=== PATIENT | male | born 1975 | race American Indian/Alaskan Native ===

== ENCOUNTER 2018-09-01 16:21 | Inpatient (IN) | payer SELFPAY ==
--- NOTE | 2018-09-01 16:32 | Event Note ---
ED Screening Note Date of service: 09/01/18 Time: 16:30 ED Screening Note: 43 y/o male come in for left pinky toe pain and smell. This initial assessment/diagnostic orders/clinical plan/treatment(s) is/are subject to change based on patients health status, clinical progression and re-assessment by fellow clinical providers in the ED. Further treatment and workup at subsequent clinical providers discretion. Patient/guardian urged not to elope from the ED as their condition may be serious if not clinically assessed and managed. Initial orders include:
[2018-09-01 17:09] LABS: Basophils # (Auto) 0.1 K/mm3 (0.0-0.1); Basophils % (Auto) 0.4 % (0.0-1.8); Eosinophils # (Auto) 0.2 K/mm3 (0.0-0.4); Eosinophils % (Auto) 1.2 % (0.0-4.3); Hematocrit 35.6 % (35.5-45.6); Hemoglobin 11.6 gm/dl (11.8-15.2); Lymphocytes # (Auto) 3.3 K/mm3 (1.2-5.4); Lymphocytes % (Auto) 22.1 % (13.4-35.0); Mean Corpuscular HGB Conc 33 % (32-34); Mean Corpuscular Volume 83 fl (84-94); Monocytes # (Auto) 1.1 K/mm3 (0.0-0.8); Monocytes % (Auto) 7.3 % (0.0-7.3); Platelet Count 461 K/mm3 (140-440); Red Blood Count 4.27 M/mm3 (3.65-5.03); Red Cell Distribution Width 15.2 % (13.2-15.2)
--- NOTE | 2018-09-01 17:19 | XRay Report ---
PROCEDURE: XR FOOT 3+V LT TECHNIQUE: Frontal, lateral and oblique views left foot HISTORY: left pinky toes pain and stinks COMPARISONS: None FINDINGS: There is diffuse osteophytosis of the proximal, mid and distal phalanx of the fifth toe and proximal and mid phalanges of the fourth toe with evidence of dislocation of the bony structures. There also appears to be lytic change involving the lateral aspect of the distal metaphysis and epiph ysis of the proximal phalanx of the third toe. There is the appearance of an overlying skin defect on the lateral aspect of the forefoot. There is diffuse soft tissue swelling of the ankle and foot. IMPRESSION: 1. Findings most suggestive of osteomyelitis with toby bone destruction and dislocation involving th e phalanges of the fourth and fifth toes and possibly osteomyelitis of the proximal phalanx of the th ird toe. If further imaging is required, CT may be helpful. This document is electronically signed by Maureen Sun MD., September 01 2018 05:16:42 PM ET
[2018-09-01 17:31] LABS: Alanine Aminotransferase 16 units/L (7-56); Albumin 3.1 g/dL (3.9-5); BUN/Creatinine Ratio 7; Blood Urea Nitrogen 8 mg/dL (9-20); Calcium 8.7 mg/dL (8.4-10.2); Hemolysis Index 3
[2018-09-01 17:36] LABS: Erythrocyte Sedimentation Rate 71 mm/Hr (0-20)
[2018-09-01] MEDS ORDERED: MORPHINE IV ONE (18:16)
--- NOTE | 2018-09-01 18:23 | Emergency Department Report ---
HPI - General Chief Complaint: Extremity Injury, Lower Time Seen by Provider: 09/01/18 18:09 - HPI HPI: 43-year-old -[place] male presents to the emergency department with the complaint of pain, infection and drainage from the fourth and fifth toes of his left foot. He says that he has been noticing that it has been getting progressive worse over the past week. The patient says that he has been traveling around on a bus and therefore has been unable to stop somewhere to seek treatment. He says that he is currently moving to the [facility] but does not have a local primary care physician. He has a past history of hypertension and charcot bone disease. He presents with a low-grade fever but denies any feelings of fever, chills, sweats. He has been trying to clean the area and wrapped it up but otherwise has not taken anything for his symptoms prior to arrival. ED Past Medical Hx - Past Medical History Previous Medical History?: Yes Hx Hypertension: Yes Additional medical history: bone disease - Surgical History Past Surgical History?: Yes Hx Cholecystectomy: Yes Additional Surgical History: left foot surgery - Social History Smoking Status: Never Smoker Substance Use Type: Marijuana ED Review of Systems ROS: Stated complaint: LT PINKY TOE PAIN Other details as noted in HPI Comment: All other systems reviewed and negative Constitutional: denies: chills, diaphoresis Eyes: denies: eye pain, vision change ENT: denies: ear pain, throat pain Respiratory: denies: cough, shortness of breath Cardiovascular: denies: chest pain, palpitations Gastrointestinal: denies: abdominal pain, vomiting Genitourinary: denies: dysuria, discharge Musculoskeletal: arthralgia. denies: joint swelling Skin: lesions, change in color (skin and ulceration to the fourth and fifth toes of the left foot) Neurological: denies: headache, weakness Physical Exam - Physical Exam Vital Signs: Vital Signs 09/01/18 16:25 Temperature 100 F H Pulse Rate 91 H Respiratory 16 Rate Blood Pressure 131/74 O2 Sat by Pulse 98 Oximetry Physical Exam: GENERAL: The patient is well-developed well-nourished. HENT: Normocephalic. Atraumatic. Patient has moist mucous membranes. EYES: Extraocular motions are intact. NECK: Supple. Trachea is midline. CHEST/LUNGS: Clear to auscultation. There is no respiratory distress noted. HEART/CARDIOVASCULAR: Regular. There is no tachycardia. There is no murmur. ABDOMEN: Abdomen is soft, nontender. Patient has normal bowel sounds. There is no abdominal distention. SKIN: There is an ulcerated wound to the distal left lateral foot that involves the fifth toe and is between the fifth and fourth toe as well. The fifth toe is partially detached. There is some brownish white malodorous drainage. The fifth toe is necrotic and dark. NEURO: The patient is awake, alert, and oriented. The patient is cooperative. The patient has no focal neurologic deficits. The patient has normal speech. MUSCULOSKELETAL: There is no tenderness or deformity. There is no evidence of acute injury. ED Course Vital Signs 09/01/18 16:25 Temperature 100 F H Pulse Rate 91 H Respiratory 16 Rate Blood Pressure 131/74 O2 Sat by Pulse 98 Oximetry ED Medical Decision Making - Lab Data Result diagrams: 09/01/18 16:53 09/01/18 16:53 - Radiology Data Radiology results: report reviewed PROCEDURE: XR FOOT 3+V LT TECHNIQUE: Frontal, lateral and oblique views left foot HISTORY: left pinky toes pain and stinks COMPARISONS: None FINDINGS: There is diffuse osteophytosis of the proximal, mid and distal phalanx of the fifth toe and proximal and mid phalanges of the fourth toe with evidence of dislocation of the bony structures. There also appears to be lytic change involving the lateral aspect of the distal metaphysis and epiphysis of the proximal phalanx of the third toe. There is the appearance of an overlying skin defect on the lateral aspect of the forefoot. There is diffuse soft tissue swelling of the ankle and foot. IMPRESSION: 1. Findings most suggestive of osteomyelitis with toby bone destruction and dislocation involving the phalanges of the fourth and fifth toes and possibly osteomyelitis of the proximal phalanx of the third toe. If further imaging is required, CT may be helpful. This document is electronically signed by Maureen Sun MD., September 01 2018 05:16:42 PM ET Transcribed By: ED Dictated By: MAUREEN SUN MD Electronically Authenticated By: MAUREEN SUN MD Signed Date/Time: 09/01/18 8723 - Medical Decision Making This patient presents to the emergency department with a one-week history of darkening of the skin and possible infection to the left fifth and fourth toes. On examination the fifth toe is only partially attached as there is an ulcerated wound surrounding this toe and in between the fifth and fourth toe. There is some bluish brownish drainage. Patient has a low-grade fever but otherwise vital signs are stable. There is a mild to moderate leukocytosis. An x-ray was done that shows signs of osteomyelitis of the fifth and fourth toes. The patient was started on vancomycin and Rocephin and will be admitted to the hospital for further evaluation and treatment. He was accepted for admission by the hospitalist, Dr. Masters. - Differential Diagnosis osteomyelitis, diabetic ulcer, cellulitis Critical Care Time: No Critical care attestation.: If time is entered above; I have spent that time in minutes in the direct care of this critically ill patient, excluding procedure time. ED Disposition Clinical Impression: Osteomyelitis of fifth toe of left foot, Osteomyelitis of fourth toe of left foot Disposition: OP ADMIT IP TO THIS HOSP Is pt being admited?: Yes Condition: Fair Time of Disposition: 18:23
[2018-09-01] MEDS ORDERED: VANCOMYCIN PHARMACY TO DOSE IV SCH ×2 (19:00→20:00)
[2018-09-01] MEDS ORDERED: ROCEPHIN/NS 2 GM/100 ML 2 GM/100 ML BAG IV ONE (19:16)
[2018-09-01] MEDS ORDERED: SODIUM CHLORIDE FLUSH SYRINGE 10 ML IV PRN (19:33)
[2018-09-01] MEDS ORDERED: TYLENOL PO PRN (19:33)
[2018-09-01] MEDS ORDERED: ZOFRAN IV PRN (19:33)
[2018-09-01] MEDS ORDERED: ROCEPHIN/NS 1 GM/50 ML 1 GM/50 ML BAG IV ONE (19:44)
[2018-09-01] MEDS ORDERED: MORPHINE ONE (19:45)
[2018-09-01] MEDS ORDERED: ROCEPHIN IM ONE (19:49)
[2018-09-01] MEDS ORDERED: NACL 0.9% 1000 ML 1,000 ML IV SCH (20:00)
--- NOTE | 2018-09-01 20:09 | History and Physical Report ---
History of Present Illness Date of examination: 09/01/18 Date of admission: 09/01/18 18:24 Chief complaint: Left foot wound with excessive drainage and foul odor History of present illness: 43-year-old -[place] male with history of hypertension and charcot bone disease presents to [facility] ED with complaints of left foot wound with increased drainage. Patient underwent left foot surgery in [facility] approximately 2-3 weeks ago. He was advised to continue wet to dry dressings and wrapped foot with José Antonio bandage. Over the past 2 weeks he has noticed his wound drainage has progressively increased with a foul odor and the development of foot pain. Lázaro nino states that he removed the bandage one night and found his left fourth and fifth toe to be blistered with discolored drainage and a strong foul odor. Patient admits to not seeking immediate medical attention because he was in the process of relocating from [place] to [place]. He states that he was traveling on a commercial bus for several days before arriving in [place]. Today is his first day in the city of [place], and he is to immediately seek treatment for his foot. Admits: Fever, foot pain, foul foot odor, increased drainage Denies: n/v/d, headache, history of diabetes, or cough Past History Past Medical History: hypertension, other (Charcot bone disease) Past Surgical History: cholecystectomy, Other (left foot surgery) Social history: smoking (marijuana) Family history: no significant family history Medications and Allergies Allergies Allergy/AdvReac Type Severity Reaction Status Date / Time hydromorphone [From Dilaudid] AdvReac Unknown Verified 09/01/18 19:11 Active Meds: Active Medications Acetaminophen (Tylenol) 650 mg PO Q4H PRN PRN Reason: Pain MILD(1-3)/Fever >100.5/SCHMIDT Docusate Sodium (Colace) 100 mg PO BID ZACH Heparin Sodium (Porcine) (Heparin) 5,000 unit SUB-Q Q12HR ZACH Hydralazine HCl (Apresoline) 10 mg IV Q4HR PRN PRN Reason: Blood Pressure Vancomycin HCl 2,000 mg/ (Sodium Chloride) 540 mls @ 250 mls/hr IV Q8H ZACH Sodium Chloride (Nacl 0.9% 1000 Ml) 1,000 mls @ 125 mls/hr IV DIRECT ZACH Stop: 09/02/18 11:00 Ampicillin Sodium/Sulbactam Sodium (Unasyn/Ns 1.5 Gm/50 Ml) 1.5 gm in 50 mls @ 100 mls/hr IV Q6HR ZACH; Protocol Morphine Sulfate (Morphine) 2 mg IV Q4H PRN PRN Reason: Pain , Severe (7-10) Ondansetron HCl (Zofran) 4 mg IV Q8H PRN PRN Reason: Nausea And Vomiting Oxycodone/Acetaminophen (Percocet 5/325) 1 tab PO Q6H PRN PRN Reason: Pain, Moderate (4-6) Potassium Chloride (K-Dur) 40 meq PO ONCE ONE Stop: 09/01/18 20:45 Sodium Chloride (Sodium Chloride Flush Syringe 10 Ml) 10 ml IV BID ZACH Sodium Chloride (Sodium Chloride Flush Syringe 10 Ml) 10 ml IV PRN PRN PRN Reason: LINE FLUSH Review of Systems All systems: negative (reviewed and no additional remarkable complaints except as noted below) Musculoskeletal: other (left foot pain, left foot drainage, left foot odor) Integumentary: wounds (left foot wound) Exam - Physical Exam Narrative exam: Physical exam General appearance: Present: No acute distress, obese, alert and oriented 3, a total male - EENT Eyes: Present: PERRL, EOM intact ENT: hearing intact, normal dentition - Neck Neck: Present: supple, normal ROM - Respiratory Respiratory effort: Non-labored Respiratory: Clear throughout - Cardiovascular Heart rate: 91 (bpm) Rhythm: Sinus rhythm Heart Sounds: Present: S1 & S2. Absent: rub, click - Extremities Extremities: no ischemia, pulses intact, abnormal (discoloration and ulceration to the fourth and fifth toes of the left foot, with foul odor noted) - Peripheral Assessment Peripheral Pulses: within normal limits - Abdominal General gastrointestinal: Obese, soft, non-tender, normal bowel sounds - Integumentary Integumentary: Present: warm, dry - Musculoskeletal Musculoskeletal: Able to move all extremities -Neurological Neurological: CN II-XII intact - Psychiatric Psychiatric: cooperative - Constitutional Vitals: Temp Pulse Resp BP Pulse Ox 100 F H 91 H 16 140/84 98 09/01/18 16:25 09/01/18 16:25 09/01/18 16:25 09/01/18 19:30 09/01/18 19:30 Results - Labs CBC & Chem 7: 09/01/18 16:53 09/01/18 16:53 Labs: Laboratory Last Values WBC 14.8 K/mm3 (4.5-11.0) H 09/01/18 16:53 RBC 4.27 M/mm3 (3.65-5.03) 09/01/18 16:53 Hgb 11.6 gm/dl (11.8-15.2) L 09/01/18 16:53 Hct 35.6 % (35.5-45.6) 09/01/18 16:53 MCV 83 fl (84-94) L 09/01/18 16:53 MCH 27 pg (28-32) L 09/01/18 16:53 MCHC 33 % (32-34) 09/01/18 16:53 RDW 15.2 % (13.2-15.2) 09/01/18 16:53 Plt Count 461 K/mm3 (140-440) H 09/01/18 16:53 Lymph % (Auto) 22.1 % (13.4-35.0) 09/01/18 16:53 [place] % (Auto) 7.3 % (0.0-7.3) 09/01/18 16:53 Eos % (Auto) 1.2 % (0.0-4.3) 09/01/18 16:53 Baso % (Auto) 0.4 % (0.0-1.8) 09/01/18 16:53 Lymph # 3.3 K/mm3 (1.2-5.4) 09/01/18 16:53 [place] # 1.1 K/mm3 (0.0-0.8) H 09/01/18 16:53 Eos # 0.2 K/mm3 (0.0-0.4) 09/01/18 16:53 Baso # 0.1 K/mm3 (0.0-0.1) 09/01/18 16:53 Seg Neutrophils % 69.0 % (40.0-70.0) 09/01/18 16:53 Seg Neutrophils # 10.2 K/mm3 (1.8-7.7) H 09/01/18 16:53 ESR 71 mm/Hr (0-20) 09/01/18 16:53 Sodium 133 mmol/L (137-145) L 09/01/18 16:53 Potassium 3.5 mmol/L (3.6-5.0) L 09/01/18 16:53 Chloride 92.9 mmol/L (98-107) L 09/01/18 16:53 Carbon Dioxide 28 mmol/L (22-30) 09/01/18 16:53 16 mmol/L 09/01/18 16:53 BUN 8 mg/dL (9-20) L 09/01/18 16:53 1.2 mg/dL (0.8-1.5) 09/01/18 16:53 Estimated GFR > 60 ml/min 09/01/18 16:53 7 % 09/01/18 16:53 Glucose 95 mg/dL (75-100) 09/01/18 16:53 Lactic Acid 1.50 mmol/L (0.7-2.0) 09/01/18 16:53 Calcium 8.7 mg/dL (8.4-10.2) 09/01/18 16:53 0.40 mg/dL (0.1-1.2) 09/01/18 16:53 AST 14 units/L (5-40) 09/01/18 16:53 ALT 16 units/L (7-56) 09/01/18 16:53 109 units/L (35-129) 09/01/18 16:53 8.1 g/dL (6.3-8.2) 09/01/18 16:53 3.1 g/dL (3.9-5) L 09/01/18 16:53 0.6 % 09/01/18 16:53 - Imaging and Cardiology Imaging and Cardiology: Lt Foot XR: IMPRESSION: Findings most suggestive of osteomyelitis with toby bone destruction and dislocation involving the phalanges of the fourth and fifth toes and possibly osteomyelitis of the proximal phalanx of the third toe. If further imaging is required, CT may be helpful. Assessment and Plan Assessment and plan: 43-year-old -[place] male with history of hypertension and charcot bone disease presents to [facility] ED with complaints of left foot wound with increased drainage and pain. On arrival to facility patient is found to be with low-grade temp of 100. Elevated WBC at 14.8. Left foot x-ray findings are most suggestive of osteomyelitis with with toby bone destruction and dislocation involving the phalanges of the fourth and fifth toes and possibly osteomyelitis of the proximal phalanx of the third toe. Will admit to medical floor. Admits: Fever, foot pain, foul foot odor, increased drainage Denies: n/v/d, headache, history of diabetes, or cough SIRS Osteomyelitis (Lt foot) Leukocytosis Anemia Hyponatremia Hypokalemia HTN Moderate to severe malnutrition History of charcot bone disease Marijuana abuse Obesity Plan: Continue supportive care Monitor BP IV hydralazine when necessary Monitor electrolytes; replete as needed Start NS @ 125ml/hr Potassium 40 mEq po given x1 Monitor CBC Start Unasyn and vancomycin MRI foot pending Bilateral lower extremity arterial duplex pending Blood cultures pending Wound cultures pending Wound care consult pending Vascular consult pending Gen surge consult pending Dietitian consult pending HgbA1c pending Counseled for marijuana cessation May benefit from outpatient weight management program DVT PPX on Heparin and SCD's Medication reconciliation pending Advance Directives: No VTE prophylaxis?: Chemical Plan of care discussed with patient/family: Yes
[2018-09-01] MEDS ORDERED: K-DUR PO ONE (20:44)
[2018-09-01] MEDS: PERCOCET 5/325 PO PRN (22:10)
[2018-09-01] MEDS: HEPARIN SUB-Q SCH (22:10)
[2018-09-01] MEDS: COLACE PO SCH (22:10)
[2018-09-01] MEDS: SODIUM CHLORIDE FLUSH SYRINGE 10 ML IV SCH (22:11)
[2018-09-01] MEDS: VANCOMYCIN 2,000 MG in NACL 0.9% 500 ML 500 ML IV SCH (22:12)
[2018-09-02] MEDS: UNASYN/NS 1.5 GM/50 ML 1.5 GM/50 ML BAG IV SCH ×2 (00:29→04:59)
[2018-09-02] MEDS: MORPHINE IV PRN ×4 (00:30→20:12)
[2018-09-02] MEDS: VANCOMYCIN 2,000 MG in NACL 0.9% 500 ML 500 ML IV SCH ×3 (05:02→20:54)
[2018-09-02 08:15] LABS: Basophils % (Auto) 0.4 % (0.0-1.8); Eosinophils # (Auto) 0.1 K/mm3 (0.0-0.4); Eosinophils % (Auto) 1.3 % (0.0-4.3); Hematocrit 31.2 % (35.5-45.6); Hemoglobin 10.6 gm/dl (11.8-15.2); Lymphocytes # (Auto) 2.5 K/mm3 (1.2-5.4); Lymphocytes % (Auto) 23.9 % (13.4-35.0); Mean Corpuscular HGB Conc 34 % (32-34); Mean Corpuscular Volume 82 fl (84-94); Monocytes # (Auto) 0.8 K/mm3 (0.0-0.8); Monocytes % (Auto) 7.3 % (0.0-7.3); Platelet Count 403 K/mm3 (140-440); Red Blood Count 3.82 M/mm3 (3.65-5.03); Red Cell Distribution Width 15.1 % (13.2-15.2)
[2018-09-02 08:31] LABS: BUN/Creatinine Ratio 8; Blood Urea Nitrogen 9 mg/dL (9-20); Calcium 8.4 mg/dL (8.4-10.2); Hemolysis Index 0
--- NOTE | 2018-09-02 09:06 | Consultation ---
History of Present Illness - Reason for Consult Consult date: 09/02/18 nonhealing left foot wound - History of Present Illness Patient with a history of left foot wound underneath the first MTP. Arterial ultrasound be performed at time of examination. Patient has good inflow extending into the tibial vessels. He does have bilateral lower extremity edema left greater than right and a history of an ankle ulcer on the left that is previously healed. Additionally, the patient has a right Charcot foot. He does not have a pressure reducing footwear. Not currently seeing wound care. Past History Past Medical History: hypertension, other (Charcot bone disease) Past Surgical History: cholecystectomy, Other (left foot surgery) Social history: smoking (marijuana) Family history: no significant family history Medications and Allergies Allergies Allergy/AdvReac Type Severity Reaction Status Date / Time hydromorphone [From Dilaudid] AdvReac Unknown Verified 09/01/18 19:11 Home Medications Medication Instructions Recorded Confirmed Last Taken Type Carvedilol [Coreg] 25 mg PO BID 09/02/18 09/02/18 09/01/18 History Catapres 0.2 mg PO TID 09/02/18 09/02/18 09/01/18 20:00 History 0.2 DULoxetine 60 mg PO DAILY 09/02/18 09/02/18 09/01/18 History Flecainide 50 mg PO BID 09/02/18 09/02/18 09/01/18 History 50 mg Losartan/Hydrochlorothiazide 100 mg PO BID 09/02/18 09/02/18 09/01/18 20:00 History Minoxidil 0.5 mg PO BID 09/02/18 09/02/18 09/01/18 20:00 History Omeprazole 40 mg PO BID 09/02/18 09/02/18 09/01/18 History Potassium Chloride 20 meq PO BID 09/02/18 09/02/18 09/01/18 History Active Meds: Active Medications Acetaminophen (Tylenol) 650 mg PO Q4H PRN PRN Reason: Pain MILD(1-3)/Fever >100.5/SCHMIDT Docusate Sodium (Colace) 100 mg PO BID [facility] Last Admin: 09/01/18 22:10 Dose: 100 mg Documented by: Heparin Sodium (Porcine) (Heparin) 5,000 unit SUB-Q Q12HR [facility] Last Admin: 09/01/18 22:10 Dose: 5,000 unit Documented by: Hydralazine HCl (Apresoline) 10 mg IV Q4HR PRN PRN Reason: Blood Pressure Vancomycin HCl 2,000 mg/ (Sodium Chloride) 540 mls @ 250 mls/hr IV Q8H [facility] Last Admin: 09/02/18 05:02 Dose: 250 mls/hr Documented by: Sodium Chloride (Nacl 0.9% 1000 Ml) 1,000 mls @ 125 mls/hr IV DIRECT ZACH Stop: 09/02/18 11:00 Last Admin: 09/01/18 22:21 Dose: 125 mls/hr Documented by: Ampicillin Sodium/Sulbactam Sodium (Unasyn/Ns 1.5 Gm/50 Ml) 1.5 gm in 50 mls @ 100 mls/hr IV Q6H [facility]; Protocol Last Admin: 09/02/18 04:59 Dose: 100 mls/hr Documented by: Morphine Sulfate (Morphine) 2 mg IV Q4H PRN PRN Reason: Pain , Severe (7-10) Last Admin: 09/02/18 05:02 Dose: 2 mg Documented by: Ondansetron HCl (Zofran) 4 mg IV Q8H PRN PRN Reason: Nausea And Vomiting Oxycodone/Acetaminophen (Percocet 5/325) 1 tab PO Q6H PRN PRN Reason: Pain, Moderate (4-6) Last Admin: 09/01/18 22:10 Dose: 1 tab Documented by: Sodium Chloride (Sodium Chloride Flush Syringe 10 Ml) 10 ml IV BID [facility] Last Admin: 09/01/18 22:11 Dose: 10 ml Documented by: Sodium Chloride (Sodium Chloride Flush Syringe 10 Ml) 10 ml IV PRN PRN PRN Reason: LINE FLUSH Last Admin: 09/01/18 22:22 Dose: 10 ml Documented by: Review of Systems All systems: negative Exam - Constitutional Vitals: Temp Pulse Resp BP Pulse Ox 98.4 F 75 18 133/87 97 09/02/18 05:25 09/02/18 05:25 09/02/18 05:25 09/02/18 05:25 09/02/18 05:25 General appearance: Present: no acute distress - EENT Eyes: Present: EOM intact ENT: hearing intact - Neck Neck: Present: supple, normal ROM - Respiratory Respiratory effort: normal - Extremities Extremities: abnormal Extremity abnormal: edema - Abdominal General gastrointestinal: Present: deferred Male genitourinary: Present: deferred - Rectal Rectal Exam: deferred - Psychiatric Psychiatric: appropriate mood/affect, cooperative Results - Labs CBC & Chem 7: 09/02/18 07:16 09/02/18 07:16 Labs: Abnormal lab results 09/01/18 09/01/18 09/01/18 Range/Units 16:53 16:53 20:52 WBC 14.8 H (4.5-11.0) K/mm3 Hgb 11.6 L (11.8-15.2) gm/dl Hct (35.5-45.6) % MCV 83 L (84-94) fl MCH 27 L (28-32) pg Plt Count 461 H (140-440) K/mm3 [place] # 1.1 H (0.0-0.8) K/mm3 Seg Neutrophils # 10.2 H (1.8-7.7) K/mm3 Sodium 133 L (137-145) mmol/L Potassium 3.5 L (3.6-5.0) mmol/L Chloride 92.9 L (98-107) mmol/L BUN 8 L (9-20) mg/dL Glucose (75-100) mg/dL Hemoglobin A1c 6.1 H (4-6) % Albumin 3.1 L (3.9-5) g/dL 09/02/18 09/02/18 Range/Units 07:16 07:16 WBC (4.5-11.0) K/mm3 Hgb 10.6 L (11.8-15.2) gm/dl Hct 31.2 L (35.5-45.6) % MCV 82 L (84-94) fl MCH (28-32) pg Plt Count (140-440) K/mm3 [place] # (0.0-0.8) K/mm3 Seg Neutrophils # (1.8-7.7) K/mm3 Sodium (137-145) mmol/L Potassium 3.4 L (3.6-5.0) mmol/L Chloride 96.2 L (98-107) mmol/L BUN (9-20) mg/dL Glucose 108 H (75-100) mg/dL Hemoglobin A1c (4-6) % Albumin (3.9-5) g/dL - Imaging and Cardiology Venous US: image reviewed Assessment and Plan Patient with a history of Charcot foot and a pressure ulcer that is now developed on his left foot. He will need local wound care likely debridement. He is to have good arterial inflow to heal the wound. Additionally, the patient will need pressure reducing foot wear. The patient likely has venous insufficiency contributing to the development of previous lateral ankle ulceration on the left. He will need to follow up in our office on discharge for venous ultrasound with reflux and likely treatment of his superficial veins.
[2018-09-02] MEDS: PERCOCET 5/325 PO PRN (09:26)
[2018-09-02] MEDS: SODIUM CHLORIDE FLUSH SYRINGE 10 ML IV SCH (09:27)
[2018-09-02] MEDS: COLACE PO SCH ×2 (09:27→22:16)
[2018-09-02] MEDS: HEPARIN SUB-Q SCH ×2 (09:27→22:16)
--- NOTE | 2018-09-02 09:37 | Progress Note ---
Assessment and Plan Assessment and plan: Sepsis Osteomyelitis left foot Leukocytosis Anemia Hyponatremia Hypokalemia HTN Moderate to severe malnutrition History of charcot bone disease Marijuana abuse Obesity Plan: Continue supportive care Monitor BP IV hydralazine when necessary Monitor electrolytes; replete as needed Monitor CBC Consult ID Physician for Osteomyelitis Unasyn and vancomycin started in ED MRI foot pending Bilateral lower extremity arterial duplex pending Blood cultures pending Wound cultures pending Wound care consult pending Gen surg consulted [id number] pending Counseled for marijuana cessation DVT PPX on Heparin and SCD's History Interval history: Pain, drainage, wound left foot, offensive odor Hospitalist Physical - Physical exam Narrative exam: Gen: Not in acute distress, lying in bed, obese HEENT: Normocephalic, atraumatic Neck: supple, no JVD Heart: S1 and S2 reg, no murmurs, rubs or gallop Lungs: Clear, no crackles, no wheeze Abd: soft, non tender, non distended, normal BS Ext: Left foot ulcer, offensive odor, drainage, no clubbing, no cyanosis, Neuro: Awake,alert, oriented x 3, moves all ext, non focal Psych:Normal mood - Constitutional Vitals: Temp Pulse Resp BP Pulse Ox 98.4 F 75 16 133/87 97 09/02/18 05:25 09/02/18 05:25 09/02/18 09:26 09/02/18 05:25 09/02/18 05:25 General appearance: Present: no acute distress Results - Labs CBC & Chem 7: 09/03/18 06:06 09/03/18 06:06 Labs: Laboratory Last Values WBC 10.6 K/mm3 (4.5-11.0) 09/02/18 07:16 RBC 3.82 M/mm3 (3.65-5.03) 09/02/18 07:16 Hgb 10.6 gm/dl (11.8-15.2) L 09/02/18 07:16 Hct 31.2 % (35.5-45.6) L 09/02/18 07:16 MCV 82 fl (84-94) L 09/02/18 07:16 MCH 28 pg (28-32) 09/02/18 07:16 MCHC 34 % (32-34) 09/02/18 07:16 RDW 15.1 % (13.2-15.2) 09/02/18 07:16 Plt Count 403 K/mm3 (140-440) 09/02/18 07:16 Lymph % (Auto) 23.9 % (13.4-35.0) 09/02/18 07:16 [place] % (Auto) 7.3 % (0.0-7.3) 09/02/18 07:16 Eos % (Auto) 1.3 % (0.0-4.3) 09/02/18 07:16 Baso % (Auto) 0.4 % (0.0-1.8) 09/02/18 07:16 Lymph # 2.5 K/mm3 (1.2-5.4) 09/02/18 07:16 [place] # 0.8 K/mm3 (0.0-0.8) 09/02/18 07:16 Eos # 0.1 K/mm3 (0.0-0.4) 09/02/18 07:16 Baso # 0.0 K/mm3 (0.0-0.1) 09/02/18 07:16 Seg Neutrophils % 67.1 % (40.0-70.0) 09/02/18 07:16 Seg Neutrophils # 7.1 K/mm3 (1.8-7.7) 09/02/18 07:16 ESR 71 mm/Hr (0-20) 09/01/18 16:53 Sodium 137 mmol/L (137-145) 09/02/18 07:16 Potassium 3.4 mmol/L (3.6-5.0) L 09/02/18 07:16 Chloride 96.2 mmol/L (98-107) L 09/02/18 07:16 Carbon Dioxide 27 mmol/L (22-30) 09/02/18 07:16 17 mmol/L 09/02/18 07:16 BUN 9 mg/dL (9-20) 09/02/18 07:16 1.1 mg/dL (0.8-1.5) 09/02/18 07:16 Estimated GFR > 60 ml/min 09/02/18 07:16 8 % 09/02/18 07:16 Glucose 108 mg/dL (75-100) H 09/02/18 07:16 6.1 % (4-6) H 09/01/18 20:52 Lactic Acid 1.50 mmol/L (0.7-2.0) 09/01/18 16:53 Calcium 8.4 mg/dL (8.4-10.2) 09/02/18 07:16 0.40 mg/dL (0.1-1.2) 09/01/18 16:53 AST 14 units/L (5-40) 09/01/18 16:53 ALT 16 units/L (7-56) 09/01/18 16:53 109 units/L (35-129) 09/01/18 16:53 8.1 g/dL (6.3-8.2) 09/01/18 16:53 3.1 g/dL (3.9-5) L 09/01/18 16:53 0.6 % 09/01/18 16:53 Active Medications - Current Medications Current Medications: Generic Name Dose Route Start Last Admin Trade Name Freq PRN Reason Stop Dose Admin Acetaminophen 650 mg 09/01/18 19:33 Tylenol PO Q4H PRN Pain MILD(1-3)/Fever >100.5/SCHMIDT Docusate Sodium 100 mg 09/01/18 22:00 09/02/18 09:27 Colace PO 100 mg BID ZACH Administration Heparin Sodium (Porcine) 5,000 unit 09/01/18 22:00 09/02/18 09:27 Heparin SUB-Q 5,000 unit Q12HR ZACH Administration Hydralazine HCl 10 mg 09/01/18 19:44 Apresoline IV Q4HR PRN Blood Pressure Vancomycin HCl 2,000 mg/ 540 mls @ 250 mls/hr 09/01/18 20:00 09/02/18 05:02 Sodium Chloride IV 250 mls/hr Q8H ZACH Administration Sodium Chloride 1,000 mls @ 125 mls/hr 09/01/18 20:00 09/01/18 22:21 Nacl 0.9% 1000 Ml IV 09/02/18 11:00 125 mls/hr DIRECT ZACH Administration Ampicillin Sodium/Sulbactam Sodium 3 gm in 100 mls @ 200 mls/hr 09/02/18 12:00 Unasyn/Ns 3 Gm/100 Ml IV Q6HR ZACH Morphine Sulfate 2 mg 09/01/18 19:35 09/02/18 05:02 Morphine IV 2 mg Q4H PRN Administration Pain , Severe (7-10) Ondansetron HCl 4 mg 09/01/18 19:33 Zofran IV Q8H PRN Nausea And Vomiting Oxycodone/Acetaminophen 1 tab 09/01/18 19:35 09/02/18 09:26 Percocet 5/325 PO 1 tab Q6H PRN Administration Pain, Moderate (4-6) Sodium Chloride 10 ml 09/01/18 22:00 09/02/18 09:27 Sodium Chloride Flush Syringe 10 Ml IV 10 ml BID ZACH Administration Sodium Chloride 10 ml 09/01/18 19:33 09/01/18 22:22 Sodium Chloride Flush Syringe 10 Ml IV 10 ml PRN PRN Administration LINE FLUSH
--- NOTE | 2018-09-02 09:53 | Vascular Lab Report ---
PROCEDURE: VL ARTERIAL DUPLEX LE BILAT TECHNIQUE: Duplex Doppler ultrasound of either bilateral lower extremity arteries or arterial bypass grafts was performed with image documentation. HISTORY: left foot osteomyelitis; check for arterial insuff COMPARISONS: None . FINDINGS: RIGHT LOWER EXTREMITY: Arterial waveforms: Triphasic . Thrombus: None . Stenosis: None . Color signal: Normal . Significant segmental velocity differential: None . Arterial bypass graft: Not present .Stenosis: None . LEFT LOWER EXTREMITY: Arterial waveforms: Triphasic . Thrombus: None . Stenosis: None . Color signal: Normal . Significant segmental velocity differential: None . Arterial bypass graft: Not present .Stenosis: None . IMPRESSION: No evidence of significant arterial insufficiency in the lower extremities. This document is electronically signed by An Ledezma MD., September 02 2018 09:51:15 AM ET
[2018-09-02] MEDS: UNASYN/NS 3 GM/100 ML 3 GM/100 ML BAG IV SCH ×2 (12:43→18:15)
--- NOTE | 2018-09-02 13:44 | Consultation ---
History of Present Illness Consult date: 09/02/18 Chief complaint: Osteomyelitis/gangrene of left 3rd, 4th and 5th toes - History of present illness History of present illness: 43 yo non-diabetic male with above CC. He has a Charcot foot as well. Had surgery on his left foot recently. Past History Past Medical History: hypertension, other (Charcot bone disease) Past Surgical History: cholecystectomy, Other (left foot surgery) Social history: smoking (marijuana) Family history: no significant family history Medications and Allergies Allergies Allergy/AdvReac Type Severity Reaction Status Date / Time hydromorphone [From Dilaudid] AdvReac Unknown Verified 09/01/18 19:11 Home Medications Medication Instructions Recorded Confirmed Last Taken Type Carvedilol [Coreg] 25 mg PO BID 09/02/18 09/02/18 09/01/18 History Catapres 0.2 mg PO TID 09/02/18 09/02/18 09/01/18 20:00 History 0.2 DULoxetine 60 mg PO DAILY 09/02/18 09/02/18 09/01/18 History Flecainide 50 mg PO BID 09/02/18 09/02/18 09/01/18 History 50 mg Losartan/Hydrochlorothiazide 100 mg PO BID 09/02/18 09/02/18 09/01/18 20:00 History Minoxidil 0.5 mg PO BID 09/02/18 09/02/18 09/01/18 20:00 History Omeprazole 40 mg PO BID 09/02/18 09/02/18 09/01/18 History Potassium Chloride 20 meq PO BID 09/02/18 09/02/18 09/01/18 History Active Meds: Active Medications Acetaminophen (Tylenol) 650 mg PO Q4H PRN PRN Reason: Pain MILD(1-3)/Fever >100.5/SCHMIDT Docusate Sodium (Colace) [address] [facility] Last Admin: 09/02/18 09:27 Dose: 100 mg Documented by: Heparin Sodium (Porcine) (Heparin) 5,000 unit SUB-Q Q12HR [facility] Last Admin: 09/02/18 09:27 Dose: 5,000 unit Documented by: Hydralazine HCl (Apresoline) 10 mg IV Q4HR PRN PRN Reason: Blood Pressure Vancomycin HCl 2,000 mg/ (Sodium Chloride) 540 mls @ 250 mls/hr IV Q8H [facility] Last Admin: 09/02/18 12:38 Dose: 250 mls/hr Documented by: Ampicillin Sodium/Sulbactam Sodium (Unasyn/Ns 3 Gm/100 Ml) 3 gm in 100 mls @ 200 mls/hr IV Q6HR [facility] Last Admin: 09/02/18 12:43 Dose: 200 mls/hr Documented by: Morphine Sulfate (Morphine) 2 mg IV Q4H PRN PRN Reason: Pain , Severe (7-10) Last Admin: 09/02/18 12:47 Dose: 2 mg Documented by: Ondansetron HCl (Zofran) 4 mg IV Q8H PRN PRN Reason: Nausea And Vomiting Oxycodone/Acetaminophen (Percocet 5/325) 1 tab PO Q6H PRN PRN Reason: Pain, Moderate (4-6) Last Admin: 09/02/18 09:26 Dose: 1 tab Documented by: Sodium Chloride (Sodium Chloride Flush Syringe 10 Ml) [address] [facility] Last Admin: 09/02/18 09:27 Dose: 10 ml Documented by: Sodium Chloride (Sodium Chloride Flush Syringe 10 Ml) 10 ml IV PRN PRN PRN Reason: LINE FLUSH Last Admin: 09/01/18 22:22 Dose: 10 ml Documented by: Review of Systems All systems: negative (none) Exam Vital Signs Temp Pulse Resp BP Pulse Ox 100 F H 91 H 16 131/74 98 09/01/18 16:25 09/01/18 16:25 09/01/18 16:25 09/01/18 16:25 09/01/18 16:25 - General physical appearance Positive: well developed, well nourished, no distress - Eyes Positive: PERRL, normal occular movement - ENT Positive: normal pinna, normal nares, normal mucosa, no hearing loss, no congestion - Neck Positive: no masses, no bruits, trachea midline, no venous distension - Respiratory Positive: normal expansion, normal respiratory effort, clear to auscultation - Cardiovascular Rhythm: regular Heart Sounds: Present: S1 & S2. Absent: rub, click - Breasts Breasts: deferred - Abdomen Abdomen: Present: soft, bowel sounds normal. Absent: tender, distended Hernia: none - Genitourinary Male Genitourinary: deferred - Integumentary other (The left 4th and 5th toes are gangrenous, slightly wet. There is also a trophic ulcer over the left plantar 1st metatarsal head.) - Neurologic Neurologic: alert and oriented to time, place and person, motor strength and sensation are grossly intact - Musculoskeletal normal gait, normal posture - Psychiatric Psychiatric: appropriate mood/affect, intact judgment & insight Results - Labs 09/02/18 07:16 09/02/18 07:16 Abnormal lab results 09/01/18 09/01/18 09/01/18 Range/Units 16:53 16:53 20:52 WBC 14.8 H (4.5-11.0) K/mm3 Hgb 11.6 L (11.8-15.2) gm/dl Hct (35.5-45.6) % MCV 83 L (84-94) fl MCH 27 L (28-32) pg Plt Count 461 H (140-440) K/mm3 [place] # 1.1 H (0.0-0.8) K/mm3 Seg Neutrophils # 10.2 H (1.8-7.7) K/mm3 Sodium 133 L (137-145) mmol/L Potassium 3.5 L (3.6-5.0) mmol/L Chloride 92.9 L (98-107) mmol/L BUN 8 L (9-20) mg/dL Glucose (75-100) mg/dL Hemoglobin A1c 6.1 H (4-6) % Albumin 3.1 L (3.9-5) g/dL 09/02/18 09/02/18 Range/Units 07:16 07:16 WBC (4.5-11.0) K/mm3 Hgb 10.6 L (11.8-15.2) gm/dl Hct 31.2 L (35.5-45.6) % MCV 82 L (84-94) fl MCH (28-32) pg Plt Count (140-440) K/mm3 [place] # (0.0-0.8) K/mm3 Seg Neutrophils # (1.8-7.7) K/mm3 Sodium (137-145) mmol/L Potassium 3.4 L (3.6-5.0) mmol/L Chloride 96.2 L (98-107) mmol/L BUN (9-20) mg/dL Glucose 108 H (75-100) mg/dL Hemoglobin A1c (4-6) % Albumin (3.9-5) g/dL Diabetes panel 09/01/18 09/01/18 09/02/18 Range/Units 16:53 20:52 07:16 Sodium 133 L 137 (137-145) mmol/L Potassium 3.5 L 3.4 L (3.6-5.0) mmol/L Chloride 92.9 L 96.2 L (98-107) mmol/L Carbon Dioxide 28 27 (22-30) mmol/L BUN 8 L 9 (9-20) mg/dL Creatinine 1.2 1.1 (0.8-1.5) mg/dL Glucose 95 108 H (75-100) mg/dL Hemoglobin A1c 6.1 H (4-6) % Calcium 8.7 8.4 (8.4-10.2) mg/dL AST 14 (5-40) units/L ALT 16 (7-56) units/L Alkaline Phosphatase 109 (35-129) units/L Total Protein 8.1 (6.3-8.2) g/dL Albumin 3.1 L (3.9-5) g/dL Calcium panel 09/01/18 09/02/18 Range/Units 16:53 07:16 Calcium 8.7 8.4 (8.4-10.2) mg/dL Albumin 3.1 L (3.9-5) g/dL Pituitary panel 09/01/18 09/02/18 Range/Units 16:53 07:16 Sodium 133 L 137 (137-145) mmol/L Potassium 3.5 L 3.4 L (3.6-5.0) mmol/L Chloride 92.9 L 96.2 L (98-107) mmol/L Carbon Dioxide 28 27 (22-30) mmol/L BUN 8 L 9 (9-20) mg/dL Creatinine 1.2 1.1 (0.8-1.5) mg/dL Glucose 95 108 H (75-100) mg/dL Calcium 8.7 8.4 (8.4-10.2) mg/dL Adrenal panel 09/01/18 09/02/18 Range/Units 16:53 07:16 Sodium 133 L 137 (137-145) mmol/L Potassium 3.5 L 3.4 L (3.6-5.0) mmol/L Chloride 92.9 L 96.2 L (98-107) mmol/L Carbon Dioxide 28 27 (22-30) mmol/L BUN 8 L 9 (9-20) mg/dL Creatinine 1.2 1.1 (0.8-1.5) mg/dL Glucose 95 108 H (75-100) mg/dL Calcium 8.7 8.4 (8.4-10.2) mg/dL Total Bilirubin 0.40 (0.1-1.2) mg/dL AST 14 (5-40) units/L ALT 16 (7-56) units/L Alkaline Phosphatase 109 (35-129) units/L Total Protein 8.1 (6.3-8.2) g/dL Albumin 3.1 L (3.9-5) g/dL - Imaging Additional studies: Left foot MRI pending. See results of left foot plain x-ray. Assessment and Plan - Patient Problems (1) Osteomyelitis of fifth toe of left foot Current Visit: Yes Status: Acute Plan to address problem: 1) I will debride his left 4th and 5th toes at the bedside tomorrow. 2) Check results of left foot MRI. 3) Additional surgery pending results of MRI 4) Vascular input appreciated.
--- NOTE | 2018-09-02 15:29 | Magnetic Resonance Report ---
PROCEDURE: MR LE JOINT LT WO CON HISTORY: left foot osteomyelitis FINDINGS: MRI of the left foot was performed using short-axis fat saturated T2, short-axis T1, long-a xis inversion recovery, long axis TI, long axis fat saturated T2, sagittal recovery and sagittal T1-w eighted images. These images demonstrate abnormal low T1, increased T2 signal intensity within the third proximal pha lanx, third middle phalanx, and all phalanges of the fourth and fifth digits consistent with osteomye litis Signal in the first and second digits appears within normal limits. The metatarsals appear normal in signal. The Lisfranc ligament is identified and appears intact No abscess is seen. IMPRESSION: Osteomyelitis of third proximal phalanx, third middle phalanx, and of the phalanges of th e fourth and fifth digits This document is electronically signed by Harpreet Tolentino MD., September 02 2018 03:27:27 PM ET
[2018-09-02] MEDS: APRESOLINE IV PRN (20:09)
[2018-09-02] MEDS: PROTONIX PO SCH (22:16)
[2018-09-02] MEDS: COREG PO SCH (22:16)
[2018-09-02] MEDS: CATAPRES PO SCH (22:16)
[2018-09-03] MEDS: UNASYN/NS 3 GM/100 ML 3 GM/100 ML BAG IV SCH (01:18)
[2018-09-03] MEDS: SODIUM CHLORIDE FLUSH SYRINGE 10 ML IV SCH ×3 (01:18→22:55)
[2018-09-03] MEDS: VANCOMYCIN 2,000 MG in NACL 0.9% 500 ML 500 ML IV SCH ×2 (05:21→12:28)
[2018-09-03] MEDS: MORPHINE IV PRN ×4 (05:21→22:46)
[2018-09-03 07:10] LABS: Hematocrit 32.8 % (35.5-45.6); Hemoglobin 10.8 gm/dl (11.8-15.2); Mean Corpuscular HGB Conc 33 % (32-34); Mean Corpuscular Volume 83 fl (84-94); Platelet Count 426 K/mm3 (140-440); Red Blood Count 3.96 M/mm3 (3.65-5.03); Red Cell Distribution Width 14.8 % (13.2-15.2)
[2018-09-03 07:27] LABS: BUN/Creatinine Ratio 6; Blood Urea Nitrogen 6 mg/dL (9-20); Calcium 8.5 mg/dL (8.4-10.2); Hemolysis Index 26
[2018-09-03] MEDS: CATAPRES PO SCH ×3 (08:16→20:00)
[2018-09-03] MEDS: COREG PO SCH ×2 (10:45→22:47)
[2018-09-03] MEDS: CYMBALTA PO SCH (10:45)
[2018-09-03] MEDS: PROTONIX PO SCH ×2 (10:45→22:48)
[2018-09-03] MEDS: COLACE PO SCH ×2 (10:45→22:00)
[2018-09-03] MEDS: HEPARIN SUB-Q SCH ×2 (10:46→22:55)
--- NOTE | 2018-09-03 11:32 | Consultation ---
History of Present Illness - Reason for Consult Consult date: 09/03/18 Left foot Osteomyelitis Requesting physician: RUBÉN CLAYTON - History of Present Illness This patient is a 43 year old male with a past medical history of hypertension and charcot bone disease that presents to the ED on 09/01/18 with complains of left foot wound drainage. Patient stated that he underwent left foot surgery 2-3 weeks ago in [place], [place]. He was advised at that time to continue wet to dry dressing s and to keep foot wrapped with an eliezer bandage. He reports that over the past 2 weeks, he h as noticed increased wound drainage with accompanying foul odor with foot pain. He reports that his fourth and fifth toes to be blistered with discolored drainage and foul odor. On admission WBC 14.8, Creatinine 1.0, Lactic acid 1.50, Hemoglobin A1C 6.1, Vancomycin trough 19.5, Temperature 100.0,, HR 9, BP 131/74,. Wound cultures grew ESBL Proteus. Blood cultures show no growth to date. Foot xray shows findings most suggestive of osteomyelitis with toby bone destruction and dislocation involving the phalanges of the forth and fifth toes and possible osteomyelitis of the proximal phalanx of the third toe. Lower extremity MRI reveals osteomyelitis of third proximal phalanx, third middle phalanx and the phalanges of the fourth and fifth digits. Duplex scan shows no evidence of significant arterial insufficiency in the lower extremities. Review of Systems: General: no fever, chills, nightsweats, unintentional weight change, or change in appetite Cutaneous: no rash, pruritus Head: no headaches or injury Eyes: no changes in vision, eye pain, double vision Ears: no ear pain, ear discharge, ringing or hearing loss Nose: no nose bleeding, stuffiness Mouth & throat: no bleeding gums, no horseness, no dental problems, or swollen glands Neck: no pain, node enlargement/lumps, tyroid enlargement or tenderness Respiratory: no cough, wheezing, sputum, hemoptysis, pleuritic chest pain Cardiovascular: no chest pain, leg edema, cyanosis, CARRERA, orthopnea Musculoskeletal: left diabetic foot necrotic ulcer, purulent drainage, +foul odor with dressing. Gastrointestinal: no nausea, vomiting, hematemesis, diarrhea, constipation, melena, bright red blood in stools, fecal incontinence, jaundice Neurogical: no seizures, no headaches, no weakness, no paresthesias, no loss of speech or vision; no memory loss, no vertigo, no tremors, no numbness Psychiatric: stable mood; no excessive anxiety, sadness or moodiness Past History Past Medical History: hypertension, other (Charcot bone disease) Past Surgical History: cholecystectomy, Other (left foot surgery) Social history: smoking (marijuana) Family history: no significant family history Medications and Allergies Allergies Allergy/AdvReac Type Severity Reaction Status Date / Time hydromorphone [From Dilaudid] AdvReac Unknown Verified 09/01/18 19:11 Home Medications Medication Instructions Recorded Confirmed Last Taken Type Carvedilol [Coreg] 25 mg PO BID 09/02/18 09/02/18 09/01/18 History Catapres 0.2 mg PO TID 09/02/18 09/02/18 09/01/18 20:00 History 0.2 DULoxetine 60 mg PO DAILY 09/02/18 09/02/18 09/01/18 History Flecainide 50 mg PO BID 09/02/18 09/02/18 09/01/18 History 50 mg Losartan/Hydrochlorothiazide 100 mg PO BID 09/02/18 09/02/18 09/01/18 20:00 History Minoxidil 0.5 mg PO BID 09/02/18 09/02/18 09/01/18 20:00 History Omeprazole 40 mg PO BID 09/02/18 09/02/18 09/01/18 History Potassium Chloride 20 meq PO BID 09/02/18 09/02/18 09/01/18 History Active Meds: Active Medications Acetaminophen (Tylenol) 650 mg PO Q4H PRN PRN Reason: Pain MILD(1-3)/Fever >100.5/SCHMIDT Carvedilol (Coreg) 25 mg PO BID [facility] Last Admin: 09/03/18 10:45 Dose: 25 mg Documented by: Clonidine HCl (Catapres) 0.2 mg PO TID [facility] Last Admin: 09/03/18 08:16 Dose: 0.2 mg Documented by: Docusate Sodium (Colace) 100 mg PO BID [facility] Last Admin: 09/03/18 10:45 Dose: 100 mg Documented by: Duloxetine HCl (Cymbalta) 60 mg PO DAILY [facility] Last Admin: 09/03/18 10:45 Dose: 60 mg Documented by: Heparin Sodium (Porcine) (Heparin) 5,000 unit SUB-Q Q12HR [facility] Last Admin: 09/03/18 10:46 Dose: 5,000 unit Documented by: Hydralazine HCl (Apresoline) 10 mg IV Q4HR PRN PRN Reason: Blood Pressure Last Admin: 09/02/18 20:09 Dose: 10 mg Documented by: Vancomycin HCl 2,000 mg/ (Sodium Chloride) 540 mls @ 250 mls/hr IV Q8H [facility] Last Admin: 09/03/18 05:21 Dose: 250 mls/hr Documented by: Ampicillin Sodium/Sulbactam Sodium (Unasyn/Ns 3 Gm/100 Ml) 3 gm in 100 mls @ 200 mls/hr IV Q6HR [facility] Last Admin: 09/03/18 01:18 Dose: 200 mls/hr Documented by: Morphine Sulfate (Morphine) 2 mg IV Q4H PRN PRN Reason: Pain , Severe (7-10) Last Admin: 09/03/18 10:40 Dose: 2 mg Documented by: Ondansetron HCl (Zofran) 4 mg IV Q8H PRN PRN Reason: Nausea And Vomiting Oxycodone/Acetaminophen (Percocet 5/325) 1 tab PO Q6H PRN PRN Reason: Pain, Moderate (4-6) Last Admin: 09/02/18 09:26 Dose: 1 tab Documented by: Pantoprazole Sodium (Protonix) 40 mg PO BID [facility] Last Admin: 09/03/18 10:45 Dose: 40 mg Documented by: Sodium Chloride (Sodium Chloride Flush Syringe 10 Ml) 10 ml IV BID [facility] Last Admin: 09/03/18 10:46 Dose: 10 ml Documented by: Sodium Chloride (Sodium Chloride Flush Syringe 10 Ml) 10 ml IV PRN PRN PRN Reason: LINE FLUSH Last Admin: 09/01/18 22:22 Dose: 10 ml Documented by: Physical Examination - Physical Exam Narrative exam: Constitutional: Alert, cooperative. No acute distress Head, Ears, Nose: Normocephalic, atraumatic. External ears, nose normal Eyes: Conjunctivae/corneas clear. No icterus. No ptosis. Neck: Supple, no meningeal signs Oral: dentition good. No thrush Cardiovascular: S1, S2 normal. Respiratory: Good air entry, clear to auscultation bilaterally GI: Soft, non-tender; bowel sounds normal. No peritoneal signs Musculoskeletal: left diabetic foot necrotic ulcer, purulent drainage, +foul odor. wrapped with dressing. S/p amputation of 4th and 5th toes. Skin: No rash or abscess. Hem/Lymphatic: No palpable cervical or supraclavicular nodes. No lymphangitis Psych: Mood ok. Affect normal Neurological: Awake, alert, oriented. - Constitutional Vitals: Vital Signs Temp Pulse Resp BP Pulse Ox 98.6 F 64 18 138/78 98 09/03/18 05:40 09/03/18 08:16 09/03/18 10:40 09/03/18 10:45 09/03/18 05:40 Temperature -Last 24 Hours Temperature 98.6 F Temperature 99.8 F Temperature 99.1 F Temperature 99.4 F Results - Labs CBC & Chem 7: 09/03/18 06:06 09/03/18 06:06 Labs: Abnormal lab results 09/03/18 09/03/18 Range/Units 06:06 06:06 Hgb 10.8 L (11.8-15.2) gm/dl Hct 32.8 L (35.5-45.6) % MCV 83 L (84-94) fl MCH 27 L (28-32) pg BUN 6 L (9-20) mg/dL Glucose 102 H (75-100) mg/dL Assessment and Plan Cultures: 09/01/18 Left Foot: ESBL Proteus Mirabiliss 09/01/18 Blood: no growth to date A/P: 43 year old male with a past medical history of hypertension and charcot bone disease that presents to the ED on 09/01/18 with complains of left foot wound drainage. Patient stated that he underwent left foot surgery 2-3 weeks ago in [place], [place]. He was advised at that time to continue wet to dry dressing s and to keep foot wrapped with an eliezer bandage. He reports that over the past 2 weeks, he h as noticed increased wound drainage with accompanying foul odor with foot pain. He reports that his fourth and fifth toes to be blistered with discolored drainage and foul odor. Admitted with: 1. Leukocytosis: on admission. Etiology most likely left foot osteomyelitis. . Left foot wound culture grew ESBL Proteus mirabiliss. No fever. ESR 71. Blood cultures in progress. Currently being treated with Meropenem and Vancomycin. 2. Left foot Osteomyelitis: History of charcot bone disease. Lower extremity MRI shows osteomyelitis of third proximal phalanx, third middle phalanx and the phalanges of the fourth and fifth digits. Duplex scan shows no evidence of significant arterial insufficiency in the lower extremities. Amputation of 4th and 5th toes through the MTP joint at bedside today. Third proximal phalanx surgery will be scheduled through wound care clinic at later date - Dr. Azul following. 3. Obesity: Plan: -follow-up blood cultures -Continue Meropenem -Discontinue Vancomycin -order CRP -contact isolation -Anticipate discharge on Ertapenem 1 gm IV once a day for total 3 weeks -order placed with case management and sent to [facility] -Continue wound care Dr. England d/w Dr. Jorge Alberto Grande, [facility] M: [phone] O:[phone] -
[2018-09-03] MEDS: APRESOLINE IV PRN ×2 (12:28→16:37)
--- NOTE | 2018-09-03 13:19 | Procedure Note ---
Date of procedure: 09/03/18 Pre-op diagnosis: Wet gangrene of left 4th and 5th toes Post-op diagnosis: same Procedure: Digit amputation, left 4th and 5th toes Description of procedure: Pt was supine on his bed. Left foot was prepped and draped. The left 4th and 5th toes were amputated through the MTP joint with Trotter scissors and forceps. Bleeding was minimal and was controlled with pressure. Pt tolerated the procedure well. Left foot wound was dressed by Wendy, the wound care nurse. Anesthesia: none Surgeon: REGLA LANGLEY Estimated blood loss: minimal Pathology: none Specimen disposition: discarded Condition: stable Disposition: no change
--- NOTE | 2018-09-03 14:50 | Progress Note ---
Assessment and Plan Assessment and plan: Sepsis Osteomyelitis left foot Leukocytosis Anemia Hyponatremia Hypokalemia HTN Moderate to severe malnutrition History of Charcot bone disease Marijuana abuse Obesity Plan: s/p amputation left 4th and 5th toes Continue supportive care Monitor BP IV hydralazine when necessary Monitor electrolytes; replete as needed Monitor CBC ID Physician following Unasyn and Vancomycin started in ED Bilateral lower extremity arterial duplex pending Blood cultures neg Wound culture proteus mirabilis, ESBL Gen surgery following HgbA1C pending Counseled for marijuana cessation DVT PPX on Heparin and SCD's History Interval history: Pain, drainage, wound left foot, offensive odor, s/p amputation left 4th and 5th toes Hospitalist Physical - Physical exam Narrative exam: Gen: Not in acute distress, lying in bed, obese HEENT: Normocephalic, atraumatic Neck: supple, no JVD Heart: S1 and S2 reg, no murmurs, rubs or gallop Lungs: Clear, no crackles, no wheeze Abd: soft, non tender, non distended, normal BS Ext: Dressing over left foot s/p amputation left 4th and 5th toes, Neuro: Awake,alert, oriented x 3, moves all ext, non focal Psych:Normal mood - Constitutional Vitals: Temp Pulse Resp BP Pulse Ox 98.5 F 64 18 184/104 100 09/03/18 12:18 09/03/18 12:18 09/03/18 12:18 09/03/18 12:28 09/03/18 12:18 General appearance: Present: no acute distress Results - Labs CBC & Chem 7: 09/03/18 06:06 09/03/18 06:06 Labs: Laboratory Last Values WBC 8.0 K/mm3 (4.5-11.0) 09/03/18 06:06 RBC 3.96 M/mm3 (3.65-5.03) 09/03/18 06:06 Hgb 10.8 gm/dl (11.8-15.2) L 09/03/18 06:06 Hct 32.8 % (35.5-45.6) L 09/03/18 06:06 MCV 83 fl (84-94) L 09/03/18 06:06 MCH 27 pg (28-32) L 09/03/18 06:06 MCHC 33 % (32-34) 09/03/18 06:06 RDW 14.8 % (13.2-15.2) 09/03/18 06:06 Plt Count 426 K/mm3 (140-440) 09/03/18 06:06 Lymph % (Auto) 23.9 % (13.4-35.0) 09/02/18 07:16 [place] % (Auto) 7.3 % (0.0-7.3) 09/02/18 07:16 Eos % (Auto) 1.3 % (0.0-4.3) 09/02/18 07:16 Baso % (Auto) 0.4 % (0.0-1.8) 09/02/18 07:16 Lymph # 2.5 K/mm3 (1.2-5.4) 09/02/18 07:16 [place] # 0.8 K/mm3 (0.0-0.8) 09/02/18 07:16 Eos # 0.1 K/mm3 (0.0-0.4) 09/02/18 07:16 Baso # 0.0 K/mm3 (0.0-0.1) 09/02/18 07:16 Seg Neutrophils % 67.1 % (40.0-70.0) 09/02/18 07:16 Seg Neutrophils # 7.1 K/mm3 (1.8-7.7) 09/02/18 07:16 ESR 71 mm/Hr (0-20) 09/01/18 16:53 Sodium 140 mmol/L (137-145) 09/03/18 06:06 Potassium 3.6 mmol/L (3.6-5.0) 09/03/18 06:06 Chloride 99.9 mmol/L (98-107) 09/03/18 06:06 Carbon Dioxide 28 mmol/L (22-30) 09/03/18 06:06 16 mmol/L 09/03/18 06:06 BUN 6 mg/dL (9-20) L 09/03/18 06:06 1.0 mg/dL (0.8-1.5) 09/03/18 06:06 Estimated GFR > 60 ml/min 09/03/18 06:06 6 % 09/03/18 06:06 Glucose 102 mg/dL (75-100) H 09/03/18 06:06 6.1 % (4-6) H 09/01/18 20:52 Lactic Acid 1.50 mmol/L (0.7-2.0) 09/01/18 16:53 Calcium 8.5 mg/dL (8.4-10.2) 09/03/18 06:06 0.40 mg/dL (0.1-1.2) 09/01/18 16:53 AST 14 units/L (5-40) 09/01/18 16:53 ALT 16 units/L (7-56) 09/01/18 16:53 109 units/L (35-129) 09/01/18 16:53 8.1 g/dL (6.3-8.2) 09/01/18 16:53 3.1 g/dL (3.9-5) L 09/01/18 16:53 0.6 % 09/01/18 16:53 Vancomycin Trough 19.5 ug/mL (5.0-20.0) 09/02/18 19:40 Active Medications - Current Medications Current Medications: Generic Name Dose Route Start Last Admin Trade Name Freq PRN Reason Stop Dose Admin Acetaminophen 650 mg 09/01/18 19:33 Tylenol PO Q4H PRN Pain MILD(1-3)/Fever >100.5/SCHMIDT Carvedilol 25 mg 09/02/18 22:00 09/03/18 10:45 Coreg PO 25 mg BID ZACH Administration Clonidine HCl 0.2 mg 09/02/18 22:00 09/03/18 08:16 Catapres PO 0.2 mg TID ZACH Administration Docusate Sodium 100 mg 09/01/18 22:00 09/03/18 10:45 Colace PO 100 mg BID ZACH Administration Duloxetine HCl 60 mg 09/03/18 10:00 09/03/18 10:45 Cymbalta PO 60 mg DAILY ZACH Administration Heparin Sodium (Porcine) 5,000 unit 09/01/18 22:00 09/03/18 10:46 Heparin SUB-Q 5,000 unit Q12HR ZACH Administration Hydralazine HCl 10 mg 09/01/18 19:44 09/03/18 12:28 Apresoline IV 10 mg Q4HR PRN Administration Blood Pressure Vancomycin HCl 2,000 mg/ 540 mls @ 250 mls/hr 09/01/18 20:00 09/03/18 12:28 Sodium Chloride IV 250 mls/hr Q8H ZACH Administration Meropenem 1,000 mg/ Sodium 100 mls @ 100 mls/hr 09/03/18 14:00 Chloride IV Q8HR [facility] Protocol Morphine Sulfate 2 mg 09/01/18 19:35 09/03/18 10:40 Morphine IV 2 mg Q4H PRN Administration Pain , Severe (7-10) Ondansetron HCl 4 mg 09/01/18 19:33 Zofran IV Q8H PRN Nausea And Vomiting Oxycodone/Acetaminophen 1 tab 09/01/18 19:35 09/02/18 09:26 Percocet 5/325 PO 1 tab Q6H PRN Administration Pain, Moderate (4-6) Pantoprazole Sodium 40 mg 09/02/18 22:00 09/03/18 10:45 Protonix PO 40 mg BID ZACH Administration Sodium Chloride 10 ml 09/01/18 22:00 09/03/18 10:46 Sodium Chloride Flush Syringe 10 Ml IV 10 ml BID ZACH Administration Sodium Chloride 10 ml 09/01/18 19:33 09/01/18 22:22 Sodium Chloride Flush Syringe 10 Ml IV 10 ml PRN PRN Administration LINE FLUSH Nutrition/Malnutrition Assess - Dietary Evaluation Nutrition/Malnutrition Findings: Nutrition Notes Start: 09/02/18 16:49 Freq: Status: Active Protocol: Document 09/02/18 16:49 RM (Rec: 09/02/18 16:51 RM [id number]) Nutrition Notes Need for Assessment generated from: MD Order Initial or Follow up Brief Note Current Diagnosis Hypertension Other Pertinent Diagnosis Foot stasis ulcer, Charcot bone disease Height 6 ft 1 in Weight 176.5 kg Usual Body Weight 161.36 kg [place] Body Weight (kg) 83.63 BMI 51.3 Subjective/Other Information Consulted for malnutrition. 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 Stated his appetite is good now. Stated UBW was 355 lbs 2 months ago. No temporal or orbital wasting . Nutrition Intervention Revisit per MD consult or patient Sign Off request:
[2018-09-03] MEDS: MERREM 1,000 MG in NACL 0.9% 100 ML IV SCH ×2 (14:52→22:53)
[2018-09-04 01:37] LABS: Basophils % (Auto) 0.5 % (0.0-1.8); Eosinophils # (Auto) 0.2 K/mm3 (0.0-0.4); Eosinophils % (Auto) 3.1 % (0.0-4.3); Hematocrit 31.8 % (35.5-45.6); Hemoglobin 10.5 gm/dl (11.8-15.2); Lymphocytes # (Auto) 2.4 K/mm3 (1.2-5.4); Lymphocytes % (Auto) 31.5 % (13.4-35.0); Mean Corpuscular HGB Conc 33 % (32-34); Mean Corpuscular Volume 84 fl (84-94); Monocytes # (Auto) 0.5 K/mm3 (0.0-0.8); Monocytes % (Auto) 6.3 % (0.0-7.3); Platelet Count 383 K/mm3 (140-440); Red Blood Count 3.82 M/mm3 (3.65-5.03)
[2018-09-04] MEDS: MERREM 1,000 MG in NACL 0.9% 100 ML IV SCH ×2 (04:32→05:28)
[2018-09-04] MEDS: DAKIN'S HALF STRENGTH TP SCH ×2 (04:37→17:10)
[2018-09-04] MEDS: APRESOLINE IV PRN ×2 (05:45→18:53)
[2018-09-04] MEDS: MORPHINE IV PRN ×4 (05:46→21:36)
[2018-09-04] MEDS: CATAPRES PO SCH ×3 (09:00→21:38)
[2018-09-04] MEDS: PERCOCET 5/325 PO PRN (09:11)
--- NOTE | 2018-09-04 09:11 | Progress Note ---
Assessment and Plan Cultures: 09/01/18 Left Foot: ESBL Proteus Mirabiliss 09/01/18 Blood: no growth to date A/P: 43 year old male with a past medical history of hypertension and charcot bone disease that presents to the ED on 09/01/18 with complains of left foot wound drainage. Patient stated that he underwent left foot surgery 2-3 weeks ago in [place], [place]. He was advised at that time to continue wet to dry dressing s and to keep foot wrapped with an eliezer bandage. He reports that over the past 2 weeks, he h as noticed increased wound drainage with accompanying foul odor with foot pain. He reports that his fourth and fifth toes to be blistered with discolored drainage and foul odor. Admitted with: 1. Leukocytosis: Resolved. Etiology most likely left foot osteomyelitis. . Left foot wound culture grew ESBL Proteus mirabiliss. No fever. ESR 71. CRP 5.1. Blood cultures show facility assistant growth. Currently being treated with Meropenem. 2. Left foot Osteomyelitis: History of charcot bone disease. Lower extremity MRI shows osteomyelitis of third proximal phalanx, third middle phalanx and the phalanges of the fourth and fifth digits. Duplex scan shows no evidence of significant arterial insufficiency in the lower extremities. Amputation of 4th and 5th toes through the MTP joint at bedside today. Third proximal phalanx surgery will be scheduled through wound care clinic at later date - Dr. Jorge Alberto chan. 3. Obesity: Plan: -follow-up blood cultures -Discontinue Meropenem -Start Ertapenem 1 gm IV q day. -Anticipate discharge on Ertapenem 1 gm IV once a day for total 3 weeks ending 09-24-18 -Appointment 12:00 noon, Saturday September 08, 2018 for [facility] - Patient to follow-up at the wound clinic to schedule third proximal phalanx surgery -ID appointment in 3 weeks ( sent to airplane pilot commercial) Dr. Glaser will be electronic system engineer this weekend, . Please call for questions [facility] M: [phone] O:[phone] - Subjective Date of service: 09/04/18 Interval history: Patient seen and examined. Sitting up in the chair. Reports pain to left foot with continue purulent drainage. +odor. No fevers Objective - Exam Narrative Exam: Constitutional: Alert, cooperative. Left foot pain. Head, Ears, Nose: Normocephalic, atraumatic. External ears, nose normal Eyes: Conjunctivae/corneas clear. No icterus. No ptosis. Neck: Supple, no meningeal signs Oral: dentition good. No thrush Cardiovascular: S1, S2 normal. Respiratory: Good air entry, clear to auscultation bilaterally GI: Soft, non-tender; bowel sounds normal. No peritoneal signs Musculoskeletal: left foot necrotic ulcer, purulent drainage, +foul odor. wrapped with dressing. S/p amputation of 4th and 5th toes. Skin: No rash or abscess. Hem/Lymphatic: No palpable cervical or supraclavicular nodes. No lymphangitis Psych: Mood ok. Affect normal Neurological: Awake, alert, oriented. - Constitutional Vitals: Vital Signs Temp Pulse Resp BP Pulse Ox 97.4 F L 75 22 201/109 97 09/04/18 05:32 09/04/18 05:45 09/04/18 05:32 09/04/18 05:45 09/04/18 05:32 Temperature -Last 24 Hours Temperature 97.4 F Temperature 98.5 F Temperature 98.5 F - Labs CBC & Chem 7: 09/04/18 01:27 09/03/18 06:06 Labs: Abnormal lab results 09/04/18 09/04/18 Range/Units 01:27 01:27 Hgb 10.5 L (11.8-15.2) gm/dl Hct 31.8 L (35.5-45.6) % C-Reactive Protein 5.10 H (0.00-1.30) mg/dL
[2018-09-04] MEDS: CYMBALTA PO SCH (10:00)
[2018-09-04] MEDS: HEPARIN SUB-Q SCH ×2 (10:00→21:39)
[2018-09-04] MEDS: COLACE PO SCH ×2 (11:54→21:39)
[2018-09-04] MEDS: COREG PO SCH ×2 (11:54→21:38)
[2018-09-04] MEDS: PROTONIX PO SCH ×2 (11:55→21:39)
[2018-09-04] MEDS: SODIUM CHLORIDE FLUSH SYRINGE 10 ML IV SCH (11:55)
--- NOTE | 2018-09-04 12:41 | Progress Note ---
Assessment and Plan Assessment and plan: Sepsis Osteomyelitis left foot Leukocytosis Anemia Hyponatremia Hypokalemia HTN Moderate to severe malnutrition History of Charcot bone disease Marijuana abuse Obesity Plan: s/p amputation left 4th and 5th toes on 09/03/18 Continue supportive care Monitor BP IV hydralazine when necessary Monitor electrolytes; replete as needed Monitor CBC ID Physician following Ertapenem iv Bilateral lower extremity arterial duplex pending Blood cultures neg Wound culture proteus mirabilis, ESBL - Ertapenem Gen surgery following HgbA1C pending Counseled for marijuana cessation DVT PPX on Heparin and SCD's Discussed with Dr. Azul Plan is poss dc home on friday with iv Abx and follow as outpatient to arrange surgery on left 3rd toe History Interval history: Pain, drainage, wound left foot, offensive odor, s/p amputation left 4th and 5th toes Hospitalist Physical - Physical exam Narrative exam: Gen: Not in acute distress, lying in bed, obese HEENT: Normocephalic, atraumatic Neck: supple, no JVD Heart: S1 and S2 reg, no murmurs, rubs or gallop Lungs: Clear, no crackles, no wheeze Abd: soft, non tender, non distended, normal BS Ext: Dressing over left foot s/p amputation left 4th and 5th toes, Neuro: Awake,alert, oriented x 3, moves all ext, non focal Psych:Normal mood - Constitutional Vitals: Temp Pulse Resp BP Pulse Ox 97.4 F L 75 22 180/100 97 09/04/18 05:32 09/04/18 05:45 09/04/18 05:32 09/04/18 09:00 09/04/18 05:32 General appearance: Present: no acute distress Results - Labs CBC & Chem 7: 09/04/18 01:27 09/03/18 06:06 Labs: Laboratory Last Values WBC 7.7 K/mm3 (4.5-11.0) 09/04/18 01:27 RBC 3.82 M/mm3 (3.65-5.03) 09/04/18 01:27 Hgb 10.5 gm/dl (11.8-15.2) L 09/04/18 01:27 Hct 31.8 % (35.5-45.6) L 09/04/18 01:27 MCV 84 fl (84-94) 09/04/18 01:27 MCH 28 pg (28-32) 09/04/18 01:27 MCHC 33 % (32-34) 09/04/18 01:27 RDW 15.0 % (13.2-15.2) 09/04/18 01:27 Plt Count 383 K/mm3 (140-440) 09/04/18 01:27 Lymph % (Auto) 31.5 % (13.4-35.0) 09/04/18 01:27 [place] % (Auto) 6.3 % (0.0-7.3) 09/04/18 01:27 Eos % (Auto) 3.1 % (0.0-4.3) 09/04/18 01:27 Baso % (Auto) 0.5 % (0.0-1.8) 09/04/18 01:27 Lymph # 2.4 K/mm3 (1.2-5.4) 09/04/18 01:27 [place] # 0.5 K/mm3 (0.0-0.8) 09/04/18 01:27 Eos # 0.2 K/mm3 (0.0-0.4) 09/04/18 01:27 Baso # 0.0 K/mm3 (0.0-0.1) 09/04/18 01:27 Seg Neutrophils % 58.6 % (40.0-70.0) 09/04/18 01:27 Seg Neutrophils # 4.5 K/mm3 (1.8-7.7) 09/04/18 01:27 ESR 71 mm/Hr (0-20) 09/01/18 16:53 Sodium 140 mmol/L (137-145) 09/03/18 06:06 Potassium 3.6 mmol/L (3.6-5.0) 09/03/18 06:06 Chloride 99.9 mmol/L (98-107) 09/03/18 06:06 Carbon Dioxide 28 mmol/L (22-30) 09/03/18 06:06 16 mmol/L 09/03/18 06:06 BUN 6 mg/dL (9-20) L 09/03/18 06:06 1.0 mg/dL (0.8-1.5) 09/03/18 06:06 Estimated GFR > 60 ml/min 09/03/18 06:06 6 % 09/03/18 06:06 Glucose 102 mg/dL (75-100) H 09/03/18 06:06 POC Glucose 90 (70-105) 09/04/18 08:10 6.1 % (4-6) H 09/01/18 20:52 Lactic Acid 1.50 mmol/L (0.7-2.0) 09/01/18 16:53 Calcium 8.5 mg/dL (8.4-10.2) 09/03/18 06:06 0.40 mg/dL (0.1-1.2) 09/01/18 16:53 AST 14 units/L (5-40) 09/01/18 16:53 ALT 16 units/L (7-56) 09/01/18 16:53 109 units/L (35-129) 09/01/18 16:53 5.10 mg/dL (0.00-1.30) H 09/04/18 01:27 8.1 g/dL (6.3-8.2) 09/01/18 16:53 3.1 g/dL (3.9-5) L 09/01/18 16:53 0.6 % 09/01/18 16:53 Vancomycin Trough 19.5 ug/mL (5.0-20.0) 09/02/18 19:40 Active Medications - Current Medications Current Medications: Generic Name Dose Route Start Last Admin Trade Name Freq PRN Reason Stop Dose Admin Acetaminophen 650 mg 09/01/18 19:33 Tylenol PO Q4H PRN Pain MILD(1-3)/Fever >100.5/SCHMIDT Amlodipine Besylate 5 mg 09/04/18 13:00 Norvasc PO QDAY ZACH Carvedilol 25 mg 09/02/18 22:00 09/04/18 11:54 Coreg PO 25 mg BID ZACH Administration Clonidine HCl 0.2 mg 09/02/18 22:00 09/04/18 09:00 Catapres PO 0.2 mg TID ZACH Administration Docusate Sodium 100 mg 09/01/18 22:00 09/04/18 11:54 Colace PO Not Given BID ZACH Duloxetine HCl 60 mg 09/03/18 10:00 09/04/18 10:00 Cymbalta PO 60 mg DAILY ZACH Administration Heparin Sodium (Porcine) 5,000 unit 09/01/18 22:00 09/04/18 10:00 Heparin SUB-Q 5,000 unit Q12HR ZACH Administration Hydralazine HCl 10 mg 09/01/18 19:44 09/04/18 05:45 Apresoline IV 10 mg Q4HR PRN Administration Blood Pressure Ertapenem 1 gm/ Sodium 50 mls @ 100 mls/hr 09/04/18 14:00 Chloride IV QDAY ZACH Morphine Sulfate 2 mg 09/01/18 19:35 09/04/18 11:50 Morphine IV 2 mg Q4H PRN Administration Pain , Severe (7-10) Ondansetron HCl 4 mg 09/01/18 19:33 Zofran IV Q8H PRN Nausea And Vomiting Oxycodone/Acetaminophen 1 tab 09/01/18 19:35 09/04/18 09:11 Percocet 5/325 PO 1 tab Q6H PRN Administration Pain, Moderate (4-6) Pantoprazole Sodium 40 mg 09/02/18 22:00 09/04/18 11:55 Protonix PO 40 mg BID ZACH Administration Sodium Chloride 10 ml 09/01/18 22:00 09/04/18 11:55 Sodium Chloride Flush Syringe 10 Ml IV 10 ml BID ZACH Administration Sodium Chloride 10 ml 09/01/18 19:33 09/01/18 22:22 Sodium Chloride Flush Syringe 10 Ml IV 10 ml PRN PRN Administration LINE FLUSH Sodium Hypochlorite 1 applic 09/03/18 22:00 09/04/18 04:37 Dakin's Half Strength TP Not Given BID [facility] Nutrition/Malnutrition Assess - Dietary Evaluation Nutrition/Malnutrition Findings: Nutrition Notes Start: 09/02/18 16:49 Freq: Status: Active Protocol: Document 09/02/18 16:49 RM (Rec: 09/02/18 16:51 RM [id number]) Nutrition Notes Need for Assessment generated from: MD Order Initial or Follow up Brief Note Current Diagnosis Hypertension Other Pertinent Diagnosis Foot stasis ulcer, Charcot bone disease Height 6 ft 1 in Weight 176.5 kg Usual Body Weight 161.36 kg [place] Body Weight (kg) 83.63 BMI 51.3 Subjective/Other Information Consulted for malnutrition. 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 Stated his appetite is good now. Stated UBW was 355 lbs 2 months ago. No temporal or orbital wasting . Nutrition Intervention Revisit per MD consult or patient Sign Off request:
[2018-09-04] MEDS: NORVASC PO SCH (13:35)
[2018-09-04] MEDS: INVanz 1 GM in NACL 0.9% 50 ML IV SCH (13:50)
--- NOTE | 2018-09-04 15:13 | XRay Report ---
AP CHEST: HISTORY: Left arm PICC placement The left arm PICC terminates at the cavoatrial junction. Borderline to mild cardiomegaly is evident. The lungs are clear. No evidence for infiltrate, pleural effusion or pneumothorax. IMPRESSION: The left arm PICC terminates in the cavoatrial junction. Borderline heart size.
[2018-09-05] MEDS: DAKIN'S HALF STRENGTH TP SCH ×3 (00:18→21:40)
[2018-09-05] MEDS: SODIUM CHLORIDE FLUSH SYRINGE 10 ML IV SCH ×3 (00:20→21:40)
[2018-09-05] MEDS: COLACE PO SCH ×2 (11:02→21:35)
[2018-09-05] MEDS: NORVASC PO SCH (11:02)
[2018-09-05] MEDS: PROTONIX PO SCH ×2 (11:02→21:35)
[2018-09-05] MEDS: COREG PO SCH ×2 (11:02→21:36)
[2018-09-05] MEDS: CYMBALTA PO SCH (11:03)
[2018-09-05] MEDS: MORPHINE IV PRN ×2 (11:04→17:46)
[2018-09-05] MEDS: CATAPRES PO SCH ×3 (11:07→21:35)
[2018-09-05] MEDS: HEPARIN SUB-Q SCH ×2 (11:08→21:35)
--- NOTE | 2018-09-05 11:43 | Progress Note ---
Assessment and Plan Assessment and plan: Sepsis Osteomyelitis left foot Leukocytosis Anemia Hyponatremia Hypokalemia HTN Moderate to severe malnutrition History of Charcot bone disease Marijuana abuse Obesity Plan: s/p amputation left 4th and 5th toes on 09/03/18 Continue supportive care Monitor BP IV hydralazine when necessary Monitor electrolytes; replete as needed Monitor CBC ID Physician following Ertapenem iv Bilateral lower extremity arterial duplex pending Blood cultures neg Wound culture proteus mirabilis, ESBL - Ertapenem Gen surgery following HgbA1C pending Counseled for marijuana cessation DVT PPX on Heparin and SCD's Discussed with Dr. Azul Plan is poss dc home on friday with iv Abx and follow as outpatient to arrange surgery on left 3rd toe History Interval history: Presented with Pain, drainage, wound left foot, offensive odor, s/p amputation left 4th and 5th toes 09/03 Hospitalist Physical - Physical exam Narrative exam: Gen: Not in acute distress, lying in bed, obese HEENT: Normocephalic, atraumatic Neck: supple, no JVD Heart: S1 and S2 reg, no murmurs, rubs or gallop Lungs: Clear, no crackles, no wheeze Abd: soft, non tender, non distended, normal BS Ext: Dressing over left foot s/p amputation left 4th and 5th toes, Neuro: Awake,alert, oriented x 3, moves all ext, non focal Psych:Normal mood - Constitutional Vitals: Temp Pulse Resp BP Pulse Ox 98.3 F 77 24 165/86 93 09/05/18 05:33 09/05/18 05:33 09/05/18 05:33 09/05/18 05:33 09/05/18 05:33 General appearance: Present: no acute distress Results - Labs CBC & Chem 7: 09/04/18 01:27 09/03/18 06:06 Labs: Laboratory Last Values WBC 7.7 K/mm3 (4.5-11.0) 09/04/18 01:27 RBC 3.82 M/mm3 (3.65-5.03) 09/04/18 01:27 Hgb 10.5 gm/dl (11.8-15.2) L 09/04/18 01:27 Hct 31.8 % (35.5-45.6) L 09/04/18 01:27 MCV 84 fl (84-94) 09/04/18 01:27 MCH 28 pg (28-32) 09/04/18 01:27 MCHC 33 % (32-34) 09/04/18 01: RDW 15.0 % (13.2-15.2) 09/04/18 01:27 Plt Count 383 K/mm3 (140-440) 09/04/18 01:27 Lymph % (Auto) 31.5 % (13.4-35.0) 09/04/18 01:27 [place] % (Auto) 6.3 % (0.0-7.3) 09/04/18 01: Eos % (Auto) 3.1 % (0.0-4.3) 09/04/18: Baso % (Auto) 0.5 % (0.0-1.8) 09/04/18 01: Lymph # 2.4 K/mm3 (1.2-5.4) 09/04/18 01: [place] # 0.5 K/mm3 (0.0-0.8) 09/04/18 01: Eos # 0.2 K/mm3 (0.0-0.4) 09/04/18 01: Baso # 0.0 K/mm3 (0.0-0.1) 09/04/18 01:27 Seg Neutrophils % 58.6 % (40.0-70.0) 09/04/18 01: Seg Neutrophils # 4.5 K/mm3 (1.8-7.7) 09/04/18 01:27 ESR 71 mm/Hr (0-20) 09/01/18 16:53 Sodium 140 mmol/L (137-145) 09/03/18 06:06 Potassium 3.6 mmol/L (3.6-5.0) 09/03/18 06:06 Chloride 99.9 mmol/L (98-107) 09/03/18 06:06 Carbon Dioxide 28 mmol/L (22-30) 09/03/18 06:06 16 mmol/L 09/03/18 06:06 BUN 6 mg/dL (9-20) L 09/03/18 06:06 1.0 mg/dL (0.8-1.5) 09/03/18 06:06 Estimated GFR > 60 ml/min 09/03/18 06:06 6 % 09/03/18 06:06 Glucose 102 mg/dL (75-100) H 09/03/18 06:06 POC Glucose 90 (70-105) 09/04/18 08:10 6.1 % (4-6) H 09/01/18 20:52 Lactic Acid 1.50 mmol/L (0.7-2.0) 09/01/18 16:53 Calcium 8.5 mg/dL (8.4-10.2) 09/03/18 06:06 0.40 mg/dL (0.1-1.2) 09/01/18 16:53 AST 14 units/L (5-40) 09/01/18 16:53 ALT 16 units/L (7-56) 09/01/18 16:53 109 units/L (35-129) 09/01/18 16:53 5.10 mg/dL (0.00-1.30) H 09/04/18 01:27 8.1 g/dL (6.3-8.2) 09/01/18 16:53 3.1 g/dL (3.9-5) L 09/01/18 16:53 0.6 % 09/01/18 16:53 Vancomycin Trough 19.5 ug/mL (5.0-20.0) 09/02/18 19:40 Active Medications - Current Medications Current Medications: Generic Name Dose Route Start Last Admin Trade Name Freq PRN Reason Stop Dose Admin Acetaminophen 650 mg 09/01/18 19:33 Tylenol PO Q4H PRN Pain MILD(1-3)/Fever >100.5/SCHMIDT Amlodipine Besylate 5 mg 09/04/18 13:00 09/05/18 11:02 Norvasc PO 5 mg QDAY ZACH Administration Carvedilol 25 mg 09/02/18 22:00 09/05/18 11:02 Coreg PO 25 mg BID ZACH Administration Clonidine HCl 0.2 mg 09/02/18 22:00 09/05/18 11:07 Catapres PO 0.2 mg TID ZACH Administration Docusate Sodium 100 mg 09/01/18 22:00 09/05/18 11:02 Colace PO 100 mg BID ZACH Administration Duloxetine HCl 60 mg 09/03/18 10:00 09/05/18 11:03 Cymbalta PO 60 mg DAILY ZACH Administration Heparin Sodium (Porcine) 5,000 unit 09/01/18 22:00 09/05/18 11:08 Heparin SUB-Q 5,000 unit Q12HR ZACH Administration Hydralazine HCl 10 mg 09/01/18 19:44 09/04/18 18:53 Apresoline IV 10 mg Q4HR PRN Administration Blood Pressure Ertapenem 1 gm/ Sodium 50 mls @ 100 mls/hr 09/04/18 14:00 09/04/18 13:50 Chloride IV 100 mls/hr QDAY ZACH Administration Morphine Sulfate 2 mg 09/01/18 19:35 09/05/18 11:04 Morphine IV 2 mg Q4H PRN Administration Pain , Severe (7-10) Ondansetron HCl 4 mg 09/01/18 19:33 Zofran IV Q8H PRN Nausea And Vomiting Oxycodone/Acetaminophen 1 tab 09/01/18 19:35 09/04/18 09:11 Percocet 5/325 PO 1 tab Q6H PRN Administration Pain, Moderate (4-6) Pantoprazole Sodium 40 mg 09/02/18 22:00 09/05/18 11:02 Protonix PO 40 mg BID ZACH Administration Sodium Chloride 10 ml 09/01/18 22:00 09/05/18 11:10 Sodium Chloride Flush Syringe 10 Ml IV 10 ml BID ZACH Administration Sodium Chloride 10 ml 09/01/18 19:33 09/01/18 22:22 Sodium Chloride Flush Syringe 10 Ml IV 10 ml PRN PRN Administration LINE FLUSH Sodium Hypochlorite 1 applic 09/03/18 22:00 09/05/18 00:18 Dakin's Half Strength TP Not Given BID ZACH Nutrition/Malnutrition Assess - Dietary Evaluation Nutrition/Malnutrition Findings: Nutrition Notes Start: 09/02/18 16:49 Freq: Status: Active Protocol: Document 09/02/18 16:49 RM (Rec: 09/02/18 16:51 RM [id number]) Nutrition Notes Need for Assessment generated from: MD Order Initial or Follow up Brief Note Current Diagnosis Hypertension Other Pertinent Diagnosis Foot stasis ulcer, Charcot bone disease Height 6 ft 1 in Weight 176.5 kg Usual Body Weight 161.36 kg [place] Body Weight (kg) 83.63 BMI 51.3 Subjective/Other Information Consulted for malnutrition. 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 Stated his appetite is good now. Stated UBW was 355 lbs 2 months ago. No temporal or orbital wasting . Nutrition Intervention Revisit per MD consult or patient Sign Off request:
[2018-09-05] MEDS: INVanz 1 GM in NACL 0.9% 50 ML IV SCH (14:15)
[2018-09-06] MEDS: MORPHINE IV PRN ×4 (04:46→22:49)
[2018-09-06 07:26] LABS: BUN/Creatinine Ratio 6; Blood Urea Nitrogen 6 mg/dL (9-20); Calcium 8.4 mg/dL (8.4-10.2); Hemolysis Index 5
[2018-09-06] MEDS: CATAPRES PO SCH ×3 (08:10→20:54)
[2018-09-06 08:12] LABS: Hematocrit 31.1 % (35.5-45.6); Hemoglobin 10.4 gm/dl (11.8-15.2); Mean Corpuscular HGB Conc 33 % (32-34); Mean Corpuscular Volume 83 fl (84-94); Platelet Count 394 K/mm3 (140-440); Red Blood Count 3.76 M/mm3 (3.65-5.03)
[2018-09-06] MEDS: APRESOLINE IV PRN ×2 (08:21→13:41)
[2018-09-06] MEDS: INVanz 1 GM in NACL 0.9% 50 ML IV SCH (10:47)
[2018-09-06] MEDS: CYMBALTA PO SCH (10:48)
[2018-09-06] MEDS: COLACE PO SCH ×2 (10:48→22:49)
[2018-09-06] MEDS: NORVASC PO SCH (10:48)
[2018-09-06] MEDS: PROTONIX PO SCH ×2 (10:48→22:49)
[2018-09-06] MEDS: COREG PO SCH ×2 (10:48→22:49)
[2018-09-06] MEDS: DAKIN'S HALF STRENGTH TP SCH ×2 (10:49→22:55)
[2018-09-06] MEDS: HEPARIN SUB-Q SCH ×2 (10:50→22:48)
[2018-09-06] MEDS: SODIUM CHLORIDE FLUSH SYRINGE 10 ML IV SCH ×2 (10:50→22:50)
--- NOTE | 2018-09-06 11:24 | Progress Note ---
Assessment and Plan Assessment and plan: Patient is 43-year-old -Malaysian male with history of hypertension and charcot bone disease presents to [facility] ED with complaints of left foot wound with increased drainage and pain. On arrival to facility patient is found to be with low-grade temp of 100. Elevated WBC at 14.8. Left foot x-ray findings are most suggestive of osteomyelitis with with toby bone destruction and dislocation involving the phalanges of the fourth and fifth toes and possibly osteomyelitis of the proximal phalanx of the third toe. He was admitted. MRI confirmeed osteomyelitis. he had amputation left 4th and 5th toes by Dr. Azul. he is on Ertapenem iv and will need tiotal 3 weeks. mental health case manager working on arrangements. Plan is to dc Mon on Ertapenem, follow up in few days Dr. Azul, Surgeon at Wound clinic to arrange outpatient surgery. Sepsis Osteomyelitis left foot Leukocytosis Anemia Hyponatremia Hypokalemia HTN Moderate to severe malnutrition History of Charcot bone disease Marijuana abuse Obesity Pre-diabetes. I discussed new diagnosis with him Proteus mirabilis ESBL wound infection - On Ertapenem Plan: s/p amputation left 4th and 5th toes on 09/03/18 Continue supportive care Monitor BP IV hydralazine when necessary Monitor electrolytes; replete as needed Monitor CBC ID Physician following Ertapenem iv Bilateral lower extremity arterial duplex pending Blood cultures neg Wound culture proteus mirabilis, ESBL - Ertapenem Gen surgery following Counseled for marijuana cessation DVT PPX on Heparin and SCD's Discussed with Dr. Azul Plan is poss dc home on Friday with iv Abx Ertapenem for total 3 weeks and follow with Dr. Azul, Surgeon at Wound clinic in few days as outpatient to arrange surgery on left 3rd toe History Interval history: Presented with Pain, drainage, wound left foot, offensive odor, s/p amputation left 4th and 5th toes 09/03 Hospitalist Physical - Physical exam Narrative exam: Gen: Not in acute distress, lying in bed, morbidly obese HEENT: Normocephalic, atraumatic Neck: supple, no JVD Heart: S1 and S2 reg, no murmurs, rubs or gallop Lungs: Clear, no crackles, no wheeze Abd: soft, non tender, non distended, normal BS Ext: Dressing over left foot s/p amputation left 4th and 5th toes, Neuro: Awake,alert, oriented x 3, moves all ext, non focal Psych:Normal mood - Constitutional Vitals: Temp Pulse Resp BP Pulse Ox 97.8 F 67 16 192/104 98 09/05/18 21:42 09/05/18 21:36 09/05/18 21:42 09/06/18 10:48 09/05/18 16:56 General appearance: Present: no acute distress Results - Labs CBC & Chem 7: 09/06/18 06:56 09/06/18 06:56 Labs: Laboratory Last Values WBC 8.2 K/mm3 (4.5-11.0) 09/06/18 06:56 RBC 3.76 M/mm3 (3.65-5.03) 09/06/18 06:56 Hgb 10.4 gm/dl (11.8-15.2) L 09/06/18 06:56 Hct 31.1 % (35.5-45.6) L 09/06/18 06:56 MCV 83 fl (84-94) L 09/06/18 06:56 MCH 28 pg (28-32) 09/06/18 06:56 MCHC 33 % (32-34) 09/06/18 06:56 RDW 15.0 % (13.2-15.2) 09/06/18 06:56 Plt Count 394 K/mm3 (140-440) 09/06/18 06:56 Lymph % (Auto) 31.5 % (13.4-35.0) 09/04/18 01:27 Gaston % (Auto) 6.3 % (0.0-7.3) 09/04/18 01:27 Eos % (Auto) 3.1 % (0.0-4.3) 09/04/18 01:27 Baso % (Auto) 0.5 % (0.0-1.8) 09/04/18 01:27 Lymph # 2.4 K/mm3 (1.2-5.4) 09/04/18 01:27 Gaston # 0.5 K/mm3 (0.0-0.8) 09/04/18 01:27 Eos # 0.2 K/mm3 (0.0-0.4) 09/04/18 01:27 Baso # 0.0 K/mm3 (0.0-0.1) 09/04/18 01:27 Seg Neutrophils % 58.6 % (40.0-70.0) 09/04/18 01:27 Seg Neutrophils # 4.5 K/mm3 (1.8-7.7) 09/04/18 01:27 ESR 71 mm/Hr (0-20) 09/01/18 16:53 Sodium 140 mmol/L (137-145) 09/06/18 06:56 Potassium 3.9 mmol/L (3.6-5.0) 09/06/18 06:56 Chloride 101.2 mmol/L (98-107) 09/06/18 06:56 Carbon Dioxide 28 mmol/L (22-30) 09/06/18 06:56 15 mmol/L 09/06/18 06:56 BUN 6 mg/dL (9-20) L 09/06/18 06:56 1.0 mg/dL (0.8-1.5) 09/06/18 06:56 Estimated GFR > 60 ml/min 09/06/18 06:56 6 % 09/06/18 06:56 Glucose 97 mg/dL (75-100) 09/06/18 06:56 POC Glucose 90 (70-105) 09/04/18 08:10 6.1 % (4-6) H 09/01/18 20:52 Lactic Acid 1.50 mmol/L (0.7-2.0) 09/01/18 16:53 Calcium 8.4 mg/dL (8.4-10.2) 09/06/18 06:56 0.40 mg/dL (0.1-1.2) 09/01/18 16:53 AST 14 units/L (5-40) 09/01/18 16:53 ALT 16 units/L (7-56) 09/01/18 16:53 109 units/L (35-129) 09/01/18 16:53 5.10 mg/dL (0.00-1.30) H 09/04/18 01:27 8.1 g/dL (6.3-8.2) 09/01/18 16:53 3.1 g/dL (3.9-5) L 09/01/18 16:53 0.6 % 09/01/18 16:53 Vancomycin Trough 19.5 ug/mL (5.0-20.0) 09/02/18 19:40 Active Medications - Current Medications Current Medications: Generic Name Dose Route Start Last Admin Trade Name Freq PRN Reason Stop Dose Admin Acetaminophen 650 mg 09/01/18 19:33 Tylenol PO Q4H PRN Pain MILD(1-3)/Fever >100.5/SCHMIDT Amlodipine Besylate 5 mg 09/04/18 13:00 09/06/18 10:48 Norvasc PO 5 mg QDAY ZACH Administration Carvedilol 25 mg 09/02/18 22:00 09/06/18 10:48 Coreg PO 25 mg BID ZACH Administration Clonidine HCl 0.2 mg 09/02/18 22:00 09/06/18 08:10 Catapres PO 0.2 mg TID ZACH Administration Docusate Sodium 100 mg 09/01/18 22:00 09/06/18 10:48 Colace PO 100 mg BID ZACH Administration Duloxetine HCl 60 mg 09/03/18 10:00 09/06/18 10:48 Cymbalta PO 60 mg DAILY ZACH Administration Heparin Sodium (Porcine) 5,000 unit 09/01/18 22:00 09/06/18 10:50 Heparin SUB-Q 5,000 unit Q12HR ZACH Administration Hydralazine HCl 10 mg 09/01/18 19:44 09/06/18 08:21 Apresoline IV 10 mg Q4HR PRN Administration Blood Pressure Ertapenem 1 gm/ Sodium 50 mls @ 100 mls/hr 09/04/18 14:00 09/06/18 10:47 Chloride IV 100 mls/hr QDAY ZACH Administration Morphine Sulfate 2 mg 09/01/18 19:35 09/06/18 11:01 Morphine IV 2 mg Q4H PRN Administration Pain , Severe (7-10) Ondansetron HCl 4 mg 09/01/18 19:33 Zofran IV Q8H PRN Nausea And Vomiting Oxycodone/Acetaminophen 1 tab 09/01/18 19:35 09/04/18 09:11 Percocet 5/325 PO 1 tab Q6H PRN Administration Pain, Moderate (4-6) Pantoprazole Sodium 40 mg 09/02/18 22:00 09/06/18 10:48 Protonix PO 40 mg BID ZACH Administration Sodium Chloride 10 ml 09/01/18 22:00 09/06/18 10:50 Sodium Chloride Flush Syringe 10 Ml IV 10 ml BID ZACH Administration Sodium Chloride 10 ml 09/01/18 19:33 09/01/18 22:22 Sodium Chloride Flush Syringe 10 Ml IV 10 ml PRN PRN Administration LINE FLUSH Sodium Hypochlorite 1 applic 09/03/18 22:00 09/06/18 10:49 Dakin's Half Strength TP 1 applicatio BID ZACH Administration Nutrition/Malnutrition Assess - Dietary Evaluation Nutrition/Malnutrition Findings: Nutrition Notes Start: 09/02/18 16:49 Freq: Status: Active Protocol: Document 09/05/18 12:52 LP (Rec: 09/05/18 12:54 LP [id number]) Nutrition Notes Need for Assessment generated from: MD Order Subjective/Other Information Consult for diet education. Pt A1c is 6.1 on 09/01/18. Pt states drinking sugary drinks and loves rice and pasta. #1 Nutrition Diagnosis Food and nutrition-related knowledge deficit Etiology prediabetes As Evidenced by Signs and Symptoms A1c 6.1 and pt unaware of diet Nutrition Intervention Teaching Recipient Patient Learning Readiness Good Teaching Methods Discussion,Handout Response to Teaching Verbalize understanding Education Handouts Provided Consistent CHO Barriers to Learning No Barriers RD phone number provided Yes Patient aware of follow up options Yes Revisit per MD consult or patient Sign Off request:
[2018-09-06] MEDS ORDERED: MINOXIDIL PO SCH (14:00)
[2018-09-06] MEDS ORDERED: FLECAINIDE 50 MG PO SCH (14:00)
[2018-09-06] MEDS ORDERED: LOSARTAN PO SCH (14:00)
[2018-09-06] MEDS ORDERED: HYDROCHLOROTHIAZIDE PO SCH (14:00)
[2018-09-06] MEDS: TAMBOCOR PO SCH (22:49)
--- NOTE | 2018-09-07 09:18 | Progress Note ---
Assessment and Plan Cultures: 09/01/18 Left Foot: ESBL Proteus Mirabiliss 09/01/18 Blood: no growth to date A/P: 43 year old male with a past medical history of hypertension and charcot bone disease that presents to the ED on 09/01/18 with complains of left foot wound drainage. Patient stated that he underwent left foot surgery 2-3 weeks ago in [place], [place]. He was advised at that time to continue wet to dry dressing s and to keep foot wrapped with an eliezer bandage. He reports that over the past 2 weeks, he h as noticed increased wound drainage with accompanying foul odor with foot pain. He reports that his fourth and fifth toes to be blistered with discolored drainage and foul odor. Admitted with: 1. Leukocytosis: Resolved. Etiology most likely left foot osteomyelitis. . Left foot wound culture grew ESBL Proteus mirabiliss. No fever. ESR 71. CRP 5.1. Blood cultures show tool and cutter grinder growth. Currently being treated with Ertapenem. 2. Left foot Osteomyelitis: History of charcot bone disease. Lower extremity MRI shows osteomyelitis of third proximal phalanx, third middle phalanx and the phalanges of the fourth and fifth digits. Duplex scan shows no evidence of significant arterial insufficiency in the lower extremities. Amputation of 4th and 5th toes through the MTP joint at bedside today. Third proximal phalanx surgery will be scheduled through wound care clinic at later date - Dr. Jorge Alberto chan. 3. Obesity: Plan: -Continue Ertapenem 1 gm IV q day, D4 -Anticipate discharge on Ertapenem 1 gm IV once a day for total 3 weeks ending 09-24-18 - Ok to discharge after Ertapenem dose, appointment 12:00 noon, Saturday September 08, 2018 for [facility] [employer] - Patient to follow-up at the wound clinic to schedule third proximal phalanx surgery -ID appointment in 3 weeks ( sent to mobility developer) -ID is signing off. [facility] M: [phone] O:[phone] - Subjective Date of service: 09/07/18 Interval history: Patient seen and examined. Sitting up in bed. Reports continued left foot pain and tenderness. No fevers. Discussion regarding OPAT, verbalized understanding. Objective - Exam Narrative Exam: Constitutional: Alert, cooperative. Left foot pain. Head, Ears, Nose: Normocephalic, atraumatic. External ears, nose normal Eyes: Conjunctivae/corneas clear. No icterus. No ptosis. Neck: Supple, no meningeal signs Oral: dentition good. No thrush Cardiovascular: S1, S2 normal. Respiratory: Good air entry, clear to auscultation bilaterally GI: Soft, non-tender; bowel sounds normal. No peritoneal signs Musculoskeletal: left foot necrotic ulcer. wrapped with dressing. S/p amputation of 4th and 5th toes. Skin: No rash or abscess. Hem/Lymphatic: No palpable cervical or supraclavicular nodes. No lymphangitis Psych: Mood ok. Affect normal Neurological: Awake, alert, oriented. - Constitutional Vitals: Vital Signs Temp Pulse Resp BP Pulse Ox 98.9 F 77 20 164/89 92 09/07/18 05:05 09/07/18 05:05 09/07/18 05:05 09/07/18 05:05 09/07/18 05:05 Temperature -Last 24 Hours Temperature 98.9 F Temperature 98.2 F Temperature 98.0 F Temperature 98.0 F - Labs CBC & Chem 7: 09/06/18 06:56 09/06/18 06:56
[2018-09-07] MEDS: PROTONIX PO SCH (09:40)
[2018-09-07] MEDS: CYMBALTA PO SCH (09:40)
[2018-09-07] MEDS: COREG PO SCH (09:40)
[2018-09-07] MEDS: NORVASC PO SCH (09:40)
[2018-09-07] MEDS: TAMBOCOR PO SCH (09:41)
[2018-09-07] MEDS: CATAPRES PO SCH ×2 (09:41→13:18)
[2018-09-07] MEDS: COLACE PO SCH (09:42)
[2018-09-07] MEDS: MORPHINE IV PRN (09:42)
[2018-09-07] MEDS: HEPARIN SUB-Q SCH (09:43)
[2018-09-07] MEDS: DAKIN'S HALF STRENGTH TP SCH (09:44)
[2018-09-07] MEDS: SODIUM CHLORIDE FLUSH SYRINGE 10 ML IV SCH (09:44)
[2018-09-07] MEDS: INVanz 1 GM in NACL 0.9% 50 ML IV SCH (10:54)
--- NOTE | 2018-09-07 12:44 | Discharge Summary ---
Providers - Providers Date of Admission: 09/01/18 18:24 Date of discharge: 09/07/18 Attending physician: GINA ABDI 09/01/18 19:35 Consult to Physician [CONS] Routine Comment: Consulting Provider: REGLA LANGLEY Physician Instructions: Reason For Exam: osteomylitis lt foot 5th toe 09/01/18 19:58 Consult to Wound/ET Nurse [CONS] Routine Reason For Exam: wound eval 09/01/18 20:05 Consult to Physician [CONS] Routine Comment: Consulting Provider: GINA PHELPS Physician Instructions: Reason For Exam: ??arterial/vascular insufficiency; left osteomyeli 09/01/18 20:22 Consult to Dietitian/Nutrition [CONS] Routine Physician Instructions: Reason For Exam: Reason for Consult: Malnutrition 09/02/18 11:48 Consult to Physician [CONS] Routine Comment: Consulting Provider: KENISHA PAREKH Physician Instructions: Reason For Exam: Osteomyelitis left foot 09/03/18 16:37 Consult to Case Management [CONS] Routine Services Needed at Discharge: Other Notified:: cm Additional Physician Instructions: [facility] ([facility] M [phone] O [phone] F [phone] OUTPATIENT PARENTERAL ANTIBIOTIC THERAPY ORDERS Diagnoses: Left foot ostemyelitis/ESBL Proteus Antimicrobial administration: Ertapenem 1 gm IV once a day for 3 weeks ending 09-24-18. Remove MIDLINE after l ast dose unless otherwise instructed. Order sent to [facility] Lines: MIDLINE Lab monitoring: CBC, BUN, Creatinine, ALT, AST, CRP, ESR once a week preferly on Friday morning. Please fax results to [phone] and call [phone] for critical lab results. Naye Grande NP/Kenisha England MD Date: 09/03/18 09/03/18 17:00 Consult to PICC Line RN [CONS] Routine Reason For Exam: OPAT Type Line:: PICC 09/05/18 09:11 Consult to Dietitian/Nutrition [CONS] Routine Physician Instructions: Reason For Exam: Pre-diabetes Reason for Consult: Diet education [facility] Condition: Fair Hospital course: Patient presented 43-year-old male with history of hypertension Charcot foot admitted for osteo left foot wound x-ray showed evidence of bony destruction. Patient found to have sepsis osteomyelitis. Cultures positive for Proteus and ESBL.pt placed on iv abt Ertapenum for 3 weeks total. IV home meds set u by ID patient will also have home pt and wound treatment Disposition: [id number] HOME UNDER HOME HLTH - Discharge Diagnoses (1) Osteomyelitis of fifth toe of left foot Status: Acute Core Measure Documentation - Palliative Care Palliative Care/ Comfort Measures: Not Applicable - Core Measures Any of the following diagnoses?: none Exam - Constitutional Vitals: Temp Pulse Resp BP Pulse Ox 98.9 F 62 20 163/85 98 09/07/18 05:05 09/07/18 09:39 09/07/18 09:39 09/07/18 09:41 09/07/18 09:39 General appearance: Present: no acute distress, well-nourished - EENT Eyes: Present: PERRL ENT: hearing intact, clear oral mucosa - Neck Neck: Present: supple, normal ROM - Respiratory Respiratory effort: normal Respiratory: bilateral: CTA - Cardiovascular Heart Sounds: Present: S1 & S2. Absent: rub, click - Extremities Extremities: pulses symmetrical, No edema Peripheral Pulses: within normal limits - Abdominal General gastrointestinal: Present: soft, non-tender, non-distended, normal bowel sounds Male genitourinary: Present: normal - Integumentary Integumentary: Present: clear, warm, dry - Musculoskeletal Musculoskeletal: strength equal bilaterally, other (resolving left foot cellulitis decreased swelling decreased erythema.) - Psychiatric Psychiatric: appropriate mood/affect, intact judgment & insight - Neurologic Neurologic: CNII-XII intact, moves all extremities Plan Activity: fall precautions Weight Bearing Status: Weight Bear as Tolerated Diet: low fat, diabetic Special Instructions: other (fu id and metro infusion) Follow up with: KIMBERLY MCCAIN MD [Primary Care Provider] - 3-5 Days Prescriptions: cloNIDine [Catapres] 0.2 mg PO TID #60 tablet Carvedilol [Coreg] 25 mg PO BID #60 tablet Flecainide 50 mg PO BID #60 Minoxidil 0.5 mg PO BID #60 amLODIPine [Norvasc] 5 mg PO QDAY #30 tablet Omeprazole 40 mg PO BID #30 capsule. oxyCODONE /ACETAMINOPHEN [Percocet 5/325 mg] 1 tab PO Q6H PRN #30 tablet PRN Reason: Pain, Moderate (4-6) Potassium Chloride 20 meq PO BID #60
[2018-09-07 13:19] VITALS: BP 159/84
== END 2018-09-07 19:07 | disposition home health service (06) | DRG 853 ==
LOC: ED 16:21 → 3A 18:24
PROVIDERS: ADMIT Internal Medicine; ATTEND Internal Medicine
PROC: 0Y6W0Z0 Detachment at Left 4th Toe, Complete, Open Approach (ICD-10-PCS; principal; 2018-09-03)
PROC: 0Y6Y0Z0 Detachment at Left 5th Toe, Complete, Open Approach (ICD-10-PCS; 2018-09-03)
DX: A41.9 Sepsis, unspecified organism (principal); E43 Unspecified severe protein-calorie malnutrition; E87.1 Hypo-osmolality and hyponatremia; M86.8X7 Other osteomyelitis, ankle and foot; Z68.43 Body mass index [BMI] 50.0-59.9, adult; I96 Gangrene, not elsewhere classified; I10 Essential (primary) hypertension; Z90.49 Acquired absence of other specified parts of digestive tract; E66.9 Obesity, unspecified; Z71.3 Dietary counseling and surveillance; L97.529 Non-pressure chronic ulcer of other part of left foot with unspecified severity; D64.9 Anemia, unspecified; E87.6 Hypokalemia; F12.10 Cannabis abuse, uncomplicated
CPT/HCPCS: 36415; 71045; 73721; 80048; 80053; 80202; 82140; 82962; 83036; 85025; 85027; 85652; 86140; 87040; 87076; 87116; 87186; 93925; G0378; A6260; J0295; J0360; J0696; J1335; J1644; J2185; J2270; J3370; J7030; J7040

== ENCOUNTER 2018-09-16 11:54 | Outpatient (CLI) | payer OTHER ==
[2018-09-16 12:15] LABS: Hematocrit 35.4 % (35.5-45.6); Hemoglobin 11.9 gm/dl (11.8-15.2); Mean Corpuscular HGB Conc 34 % (32-34); Mean Corpuscular Volume 82 fl (84-94); Platelet Count 353 K/mm3 (140-440); Red Blood Count 4.32 M/mm3 (3.65-5.03); Red Cell Distribution Width 15.2 % (13.2-15.2)
[2018-09-16 12:32] LABS: Alanine Aminotransferase 18 units/L (7-56); Blood Urea Nitrogen 8 mg/dL (9-20)
[2018-09-16 12:39] LABS: Erythrocyte Sedimentation Rate 45 mm/Hr (0-20)
== END 2018-09-16 11:55 | disposition home or self-care (01) ==
LOC: LAB 11:54
PROVIDERS: ATTEND Internal Medicine Infectious Disease
DX: M19.072 Primary osteoarthritis, left ankle and foot (principal); J45.909 Unspecified asthma, uncomplicated; I12.0 Hypertensive chronic kidney disease with stage 5 chronic kidney disease or end stage renal disease; N18.6 End stage renal disease
CPT/HCPCS: 36415; 82565; 84450; 84460; 84520; 85027; 85652; 86140

== ENCOUNTER 2018-09-23 11:39 | Outpatient (CLI) | payer OTHER ==
[2018-09-23 12:37] LABS: Alanine Aminotransferase 16 units/L (7-56); Blood Urea Nitrogen 6 mg/dL (9-20)
[2018-09-23 12:42] LABS: Hematocrit 36.3 % (35.5-45.6); Hemoglobin 11.8 gm/dl (11.8-15.2); Mean Corpuscular HGB Conc 33 % (32-34); Mean Corpuscular Hemoglobin 27 pg (28-32); Mean Corpuscular Volume 83 fl (84-94); Platelet Count 300 K/mm3 (140-440); Red Cell Distribution Width 15.7 % (13.2-15.2)
[2018-09-23 13:06] LABS: Erythrocyte Sedimentation Rate 37 mm/Hr (0-20)
== END 2018-09-23 11:40 | disposition home or self-care (01) ==
LOC: LAB 11:39
PROVIDERS: ATTEND Internal Medicine Infectious Disease
DX: M19.072 Primary osteoarthritis, left ankle and foot (principal); I12.0 Hypertensive chronic kidney disease with stage 5 chronic kidney disease or end stage renal disease; N18.6 End stage renal disease; J45.909 Unspecified asthma, uncomplicated; Z90.49 Acquired absence of other specified parts of digestive tract
CPT/HCPCS: 36415; 82565; 84450; 84460; 84520; 85027; 85652; 86140

== ENCOUNTER 2018-09-30 11:38 | Outpatient (CLI) | payer OTHER ==
[2018-09-30 11:56] LABS: Hematocrit 36.3 % (35.5-45.6); Hemoglobin 11.9 gm/dl (11.8-15.2); Mean Corpuscular HGB Conc 33 % (32-34); Mean Corpuscular Hemoglobin 27 pg (28-32); Mean Corpuscular Volume 82 fl (84-94); Platelet Count 289 K/mm3 (140-440); Red Blood Count 4.45 M/mm3 (3.65-5.03); Red Cell Distribution Width 15.9 % (13.2-15.2)
[2018-09-30 12:18] LABS: Erythrocyte Sedimentation Rate 22 mm/Hr (0-20)
[2018-09-30 12:53] LABS: Alanine Aminotransferase 20 units/L (7-56); Blood Urea Nitrogen 9 mg/dL (9-20)
== END 2018-09-30 11:39 | disposition home or self-care (01) ==
LOC: LAB 11:38
PROVIDERS: ATTEND Internal Medicine Infectious Disease
DX: M19.072 Primary osteoarthritis, left ankle and foot (principal); I12.0 Hypertensive chronic kidney disease with stage 5 chronic kidney disease or end stage renal disease; N18.6 End stage renal disease; J45.909 Unspecified asthma, uncomplicated
CPT/HCPCS: 36415; 82565; 84450; 84460; 84520; 85027; 85652; 86140

== ENCOUNTER 2018-10-11 22:40 | Emergency (ER) | payer SELFPAY ==
[2018-10-11] MEDS ORDERED: ASPIRIN PO ONE (23:37)
--- NOTE | 2018-10-12 00:11 | XRay Report ---
CHEST 1 VIEW INDICATION / CLINICAL INFORMATION: Chest Pain. COMPARISON: 09/04/2018 FINDINGS: SUPPORT DEVICES: None. HEART / MEDIASTINUM: Mild cardiomegaly LUNGS / PLEURA: No significant pulmonary or pleural abnormality. No pneumothorax. ADDITIONAL FINDINGS: No significant additional findings. IMPRESSION: Mild cardiomegaly. No acute pulmonary or pleural abnormality. Signer Name: Lionel Miles MD FACR Signed: 10/12/2018 12:07 AM Workstation Name: [id number]
[2018-10-12 00:13] LABS: Basophils # (Auto) 0.1 K/mm3 (0.0-0.1); Basophils % (Auto) 0.8 % (0.0-1.8); Eosinophils # (Auto) 0.4 K/mm3 (0.0-0.4); Eosinophils % (Auto) 4.6 % (0.0-4.3); Hematocrit 34.9 % (35.5-45.6); Hemoglobin 11.4 gm/dl (11.8-15.2); Lymphocytes # (Auto) 3.1 K/mm3 (1.2-5.4); Lymphocytes % (Auto) 38.4 % (13.4-35.0); Mean Corpuscular HGB Conc 33 % (32-34); Mean Corpuscular Volume 84 fl (84-94); Monocytes # (Auto) 0.6 K/mm3 (0.0-0.8); Monocytes % (Auto) 7.5 % (0.0-7.3); Platelet Count 294 K/mm3 (140-440); Red Blood Count 4.18 M/mm3 (3.65-5.03)
[2018-10-12 00:33] LABS: BUN/Creatinine Ratio 11; Blood Urea Nitrogen 11 mg/dL (9-20); Calcium 8.7 mg/dL (8.4-10.2); Hemolysis Index 9
--- NOTE | 2018-10-12 00:54 | Emergency Department Report ---
ED Chest Pain HPI - General Chief Complaint: Chest Pain Stated Complaint: CHEST PAIN, BOTH FEET SWOLLEN Time Seen by Provider: 10/12/18 00:48 Source: patient Mode of arrival: Ambulatory Limitations: No Limitations - History of Present Illness Initial Comments: Patient is 43 years old male with history of atrial fibrillation and hypertension. Patient presented to the ER complaining of left chest pain, sharp in nature with no radiation. Patient also complaining of bilateral lower extremity swelling and shortness of breath sometimes at time. Patient denied any fever or chills. MD Complaint: chest pain Onset: during rest Pain Location: left chest Severity scale (0 -10): 9 Quality: sharp Consistency: intermittent - Related Data Home Medications Medication Instructions Recorded Confirmed Last Taken Catapres 0.2 mg PO TID 09/02/18 09/02/18 09/01/18 20:00 0.2 DULoxetine 60 mg PO DAILY 09/02/18 09/02/18 09/01/18 Losartan/Hydrochlorothiazide 100 mg PO BID 09/02/18 09/02/18 09/01/18 20:00 Previous Rx's Medication Instructions Recorded Last Taken Type Carvedilol [Coreg] 25 mg PO BID #60 tablet 09/07/18 Unknown Rx Ertapenem [INVanz] 1 gm IV QDAY vial 09/07/18 Unknown Rx Flecainide 50 mg PO BID #60 09/07/18 Unknown Rx Flecainide [Tambocor] 50 mg PO BID tablet 09/07/18 Unknown Rx Minoxidil 0.5 mg PO BID #60 09/07/18 Unknown Rx Omeprazole 40 mg PO BID #30 capsule. 09/07/18 Unknown Rx Potassium Chloride 20 meq PO BID #60 09/07/18 Unknown Rx amLODIPine [Norvasc] 5 mg PO QDAY #30 tablet 09/07/18 Unknown Rx cloNIDine [Catapres] 0.2 mg PO TID #60 tablet 09/07/18 Unknown Rx oxyCODONE /ACETAMINOPHEN [Percocet 1 tab PO Q6H PRN #30 tablet 09/07/18 Unknown Rx 5/325 mg] Allergies Allergy/AdvReac Type Severity Reaction Status Date / Time hydromorphone [From Dilaudid] AdvReac Unknown Verified 09/01/18 19:11 Heart Score - HEART Score History: Slightly suspicious EKG: Non-specific Age: < 45 Risk factors: 1-2 risk factors Troponin: < normal limit HEART Score: 2 - Critical Actions Critical Actions: 0-3 pts:0.9-1.7%risk of adverse cardiac event.Candidate for discharge ED Review of Systems ROS: Stated complaint: CHEST PAIN, BOTH FEET SWOLLEN Other details as noted in HPI Comment: All other systems reviewed and negative Constitutional: denies: chills Respiratory: denies: cough, orthopnea, shortness of breath, SOB with exertion, wheezing Cardiovascular: denies: chest pain Gastrointestinal: denies: abdominal pain, nausea, vomiting Musculoskeletal: denies: back pain ED Past Medical Hx - Past Medical History Previous Medical History?: Yes Hx Hypertension: Yes Hx Deep Vein Thrombosis: No Hx Asthma: Yes Additional medical history: bone disease, Morbid obesity - Surgical History Past Surgical History?: Yes Hx Pacemaker: No Hx Internal Defibrillator: No Hx Cholecystectomy: Yes Additional Surgical History: left foot surgery - Social History Smoking Status: Never Smoker Substance Use Type: None - Medications Home Medications: Home Medications Medication Instructions Recorded Confirmed Last Taken Type Catapres 0.2 mg PO TID 09/02/18 09/02/18 09/01/18 20:00 History 0.2 DULoxetine 60 mg PO DAILY 09/02/18 09/02/18 09/01/18 History Losartan/Hydrochlorothiazide 100 mg PO BID 09/02/18 09/02/18 09/01/18 20:00 History Carvedilol [Coreg] 25 mg PO BID #60 tablet 09/07/18 Unknown Rx Ertapenem [INVanz] 1 gm IV QDAY vial 09/07/18 Unknown Rx Flecainide 50 mg PO BID #60 09/07/18 Unknown Rx Flecainide [Tambocor] 50 mg PO BID tablet 09/07/18 Unknown Rx Minoxidil 0.5 mg PO BID #60 09/07/18 Unknown Rx Omeprazole 40 mg PO BID #30 capsule. 09/07/18 Unknown Rx Potassium Chloride 20 meq PO BID #60 09/07/18 Unknown Rx amLODIPine [Norvasc] 5 mg PO QDAY #30 tablet 09/07/18 Unknown Rx cloNIDine [Catapres] 0.2 mg PO TID #60 tablet 09/07/18 Unknown Rx oxyCODONE /ACETAMINOPHEN [Percocet 1 tab PO Q6H PRN #30 tablet 09/07/18 Unknown Rx 5/325 mg] ED Physical Exam - General Limitations: No Limitations General appearance: alert, in no apparent distress - Head Head exam: Present: atraumatic, normocephalic, normal inspection - Eye Eye exam: Present: normal appearance - ENT ENT exam: Present: normal exam, normal orophraynx, mucous membranes moist - Neck Neck exam: Present: normal inspection. Absent: tenderness, meningismus - Respiratory Respiratory exam: Present: normal lung sounds bilaterally. Absent: respiratory distress, wheezes, rales, rhonchi, chest wall tenderness, accessory muscle use, decreased breath sounds, prolonged expiratory - Cardiovascular Cardiovascular Exam: Present: regular rate, normal rhythm, normal heart sounds - GI/Abdominal GI/Abdominal exam: Present: soft. Absent: distended, tenderness, guarding, rebound, rigid - Extremities Exam Extremities exam: Present: pedal edema - Neurological Exam Neurological exam: Present: alert, oriented X3, CN II-XII intact - Skin Skin exam: Present: warm, intact ED Course Vital Signs 10/11/18 10/12/18 10/12/18 22:56 00:43 00:45 Temperature 98.6 F 98 F Pulse Rate 73 75 78 Respiratory 150 H 16 16 Rate Blood Pressure 137/70 146/60 Blood Pressure 146/60 [Left] O2 Sat by Pulse 98 98 100 Oximetry 10/12/18 01:00 Temperature Pulse Rate 77 Respiratory 17 Rate Blood Pressure 162/80 Blood Pressure [Left] O2 Sat by Pulse 100 Oximetry ED Medical Decision Making - Lab Data Result diagrams: 10/11/18 23:55 10/11/18 23:55 - EKG Data -: EKG Interpreted by Ca EKG shows normal: sinus rhythm Rate: normal - EKG Data Interpretation: no acute changes - Radiology Data Radiology results: report reviewed Chest x-ray is unremarkable. - Medical Decision Making Patient is 43 years old male with history of atrial fibrillation and hypertension. Patient presented to the ER complaining of left chest pain, sharp in nature with no radiation. Patient also complaining of bilateral lower extremity swelling and shortness of breath sometimes at time. Patient denied any fever or chills. EKG is unremarkable. Chest x-ray is negative for acute finding. Labs reviewed and is unremarkable. Patient had 2 sets of troponin which was negative. Patient blood pressure slightly elevated so he received clonidine. Patient advised to follow-up with his primary care physician in the next 2-3 days and to return to the ER if symptoms are not improved. Critical care attestation.: If time is entered above; I have spent that time in minutes in the direct care of this critically ill patient, excluding procedure time. ED Disposition Clinical Impression: Chest pain, Volume overload, Peripheral edema Disposition: - TO HOME OR SELFCARE Is pt being admited?: No Condition: Stable Instructions: Chest Pain (ED), Leg Edema (ED) Referrals: PRIMARY CARE, [Primary Care Provider] - 3-5 Days
[2018-10-12] MEDS ORDERED: CATAPRES PO ONE (03:26)
[2018-10-12] MEDS ORDERED: ZOFRAN IM ONE (03:39)
[2018-10-12] MEDS ORDERED: MORPHINE IM ONE (03:39)
[2018-10-12 04:36] VITALS: BP 133/67
== END 2018-10-12 04:35 | disposition home or self-care (01) ==
LOC: ED 22:40
DX: R07.89 Other chest pain (principal); E87.70 Fluid overload, unspecified; R60.0 Localized edema; I10 Essential (primary) hypertension; I48.91 Unspecified atrial fibrillation; J45.909 Unspecified asthma, uncomplicated; E66.01 Morbid (severe) obesity due to excess calories; Z68.43 Body mass index [BMI] 50.0-59.9, adult; Z98.890 Other specified postprocedural states; Z79.899 Other long term (current) drug therapy; Z88.8 Allergy status to other drugs, medicaments and biological substances; Z86.79 Personal history of other diseases of the circulatory system; Z90.49 Acquired absence of other specified parts of digestive tract
CPT/HCPCS: 36415; 71045; 80048; 83880; 84484; 85025; 93005; 93010; 96372; 99284; J2270; J2405

== ENCOUNTER 2018-12-02 04:46 | Emergency (ER) | payer OTHER ==
--- NOTE | 2018-12-02 05:41 | XRay Report ---
CHEST 1 VIEW INDICATION / CLINICAL INFORMATION: Dyspnea. COMPARISON: 10/11/2018 FINDINGS: SUPPORT DEVICES: None. HEART / MEDIASTINUM: There is prominence of the cardiac silhouette. LUNGS / PLEURA: No significant pulmonary or pleural abnormality.. No pneumothorax. ADDITIONAL FINDINGS: No significant additional findings. IMPRESSION: 1. No significant change. Signer Name: Sterling English MD Signed: 12/02/2018 5:37 AM Workstation Name: [id number]
[2018-12-02 05:52] LABS: Basophils % (Auto) 0.7 % (0.0-1.8); Eosinophils # (Auto) 0.3 K/mm3 (0.0-0.4); Hematocrit 32.6 % (35.5-45.6); Hemoglobin 10.9 gm/dl (11.8-15.2); Lymphocytes # (Auto) 2.3 K/mm3 (1.2-5.4); Lymphocytes % (Auto) 36.9 % (13.4-35.0); Mean Corpuscular HGB Conc 33 % (32-34); Mean Corpuscular Volume 81 fl (84-94); Monocytes # (Auto) 0.5 K/mm3 (0.0-0.8); Monocytes % (Auto) 7.7 % (0.0-7.3); Platelet Count 247 K/mm3 (140-440); Red Blood Count 4.03 M/mm3 (3.65-5.03); Red Cell Distribution Width 15.1 % (13.2-15.2)
[2018-12-02 05:59] LABS: BUN/Creatinine Ratio 10; Blood Urea Nitrogen 11 mg/dL (9-20); Calcium 8.8 mg/dL (8.4-10.2); Hemolysis Index 2
[2018-12-02] MEDS ORDERED: CATAPRES PO ONE ×3 (06:20→12:19)
[2018-12-02] MEDS ORDERED: K-DUR PO ONE (06:21)
[2018-12-02] MEDS ORDERED: LASIX IV ONE (06:21)
[2018-12-02 07:02] LABS: INR 1.27 (0.87-1.13)
[2018-12-02 07:03] LABS: Partial Thromboplastin Time 29.4 Sec. (24.2-36.6)
--- NOTE | 2018-12-02 10:58 | Cat Scan Report ---
CTA CHEST WITH CONTRAST INDICATION : Dyspnea for 24 hours. TECHNIQUE: Axial imaging performed through the chest, with contrast bolus timing set to maximize opa cification of the pulmonary arteries. Sagittal and coronal reformatted images. 3-plane MIP reformatte d images were obtained. All CT scans at this location are performed using CT dose reduction for ALAR A by means of automated exposure control. 100 mL of intravenous contrast administered. COMPARISON: FINDINGS: Bolus: Contrast bolus timing is adequate. PTE: No filling defect is present to suggest PTE. Mediastinum: Heart and great vessels appear normal. No pathologic mediastinal adenopathy. Lungs: Lungs are clear. Bones: Degenerative changes in the spine with nothing acute. Upper abdomen: Limited imaging of the upper abdomen shows nothing acute. IMPRESSION: Negative for PTE. Clear lungs. Signer Name: Jeromy Abreu Jr, MD Signed: 12/02/2018 10:54 AM Workstation Name: [id number]
--- NOTE | 2018-12-02 11:54 | Emergency Department Report ---
ED Shortness of Breath HPI - General Chief Complaint: Dyspnea/Respdistress Stated Complaint: FOOT PAIN (BOTH) Time Seen by Provider: 12/02/18 06:19 Source: patient Mode of arrival: Ambulatory Limitations: No Limitations - History of Present Illness Initial Comments: Reports hx of left foot pain and amputation followed by podiatry. Reports he takes narcotic medication at home for foot pain. Reports his foot pain today feels no different that past foot pain. Reports dyspnea feels similar to past flares of CHF. MD Complaint: shortness of breath -: Gradual, days(s) Severity: mild Pain Scale: 2 Consistency: other (gradually worsening, feels like past CHF exacerbation.) - Related Data Home Medications Medication Instructions Recorded Confirmed Last Taken Catapres 0.2 mg PO TID 09/02/18 09/02/18 09/01/18 20:00 0.2 DULoxetine 60 mg PO DAILY 09/02/18 09/02/18 09/01/18 Losartan/Hydrochlorothiazide 100 mg PO BID 09/02/18 09/02/18 09/01/18 20:00 Previous Rx's Medication Instructions Recorded Last Taken Type Carvedilol [Coreg] 25 mg PO BID #60 tablet 09/07/18 Unknown Rx Ertapenem [INVanz] 1 gm IV QDAY vial 09/07/18 Unknown Rx Flecainide 50 mg PO BID #60 09/07/18 Unknown Rx Flecainide [Tambocor] 50 mg PO BID tablet 09/07/18 Unknown Rx Minoxidil 0.5 mg PO BID #60 09/07/18 Unknown Rx Omeprazole 40 mg PO BID #30 capsule. 09/07/18 Unknown Rx Potassium Chloride 20 meq PO BID #60 09/07/18 Unknown Rx amLODIPine [Norvasc] 5 mg PO QDAY #30 tablet 09/07/18 Unknown Rx cloNIDine [Catapres] 0.2 mg PO TID #60 tablet 09/07/18 Unknown Rx oxyCODONE /ACETAMINOPHEN [Percocet 1 tab PO Q6H PRN #30 tablet 09/07/18 Unknown Rx 5/325 mg] Furosemide [Lasix] 20 mg PO QDAY #15 tablet 10/12/18 Unknown Rx Allergies Allergy/AdvReac Type Severity Reaction Status Date / Time hydromorphone [From Dilaudid] AdvReac Unknown Verified 09/01/18 19:11 ED Review of Systems ROS: Stated complaint: FOOT PAIN (BOTH) Other details as noted in HPI Other: GENERAL: No weight change, fatigue, fever, chills, or night sweats SKIN: No changes in skin or hair, no itching, no rashes, no jaundice HEAD: No trauma, headache, or visual changes EYES: No blurriness, tearing, itching, acute visual loss, conjunctival discoloration, or scleral icterus EARS: No hearing loss, tinnitus, vertigo, or earache NOSE: No rhinorrhea, stuffiness, sneezing, itching, or epistaxis MOUTH: No bleeding gums, hoarseness, sore throat, or swelling CARDIAC: No new murmur, chest pain, palpitations, orthopnea, PND RESPIRATORY: Reports shortness of breath and edema. Denies wheeze, cough, sputum production, hemoptysis, pneumonia, asthma, bronchitis, or emphysema GI: No change in appetite, nausea, vomiting, dysphagia, diarrhea, constipation, hematemesis, melena, hematochezia, or abdominal pain URINARY: No frequency, urgency, polyuria, dysuria, hematuria, or incontinence MUSCULOSKELETAL: Left foot pain chronic. No muscle weakness, joint stiffness, decrease in range of motion, redness, swelling NEUROLOGIC: No headache, loss of sensation, numbness, tingling, tremors, weakness, paralysis, seizures HEMATOLOGIC: No anemia, easy bruising, bleeding, petechiae, or purpura ENDOCRINE: No hot or cold intolerance, sweating, polyuria, polydipsia or, polyphagia no thyroid problems PSYCHIATRIC: No change in mood, no anxiety, no depression ED Past Medical Hx - Past Medical History Hx Hypertension: Yes Hx Congestive Heart Failure: Yes Hx Deep Vein Thrombosis: No Hx Renal Disease: Yes Hx Asthma: Yes Additional medical history: bone disease, Morbid obesity - Surgical History Hx Pacemaker: No Hx Internal Defibrillator: No Hx Cholecystectomy: Yes Additional Surgical History: left foot surgery - Social History Smoking Status: Never Smoker - Medications Home Medications: Home Medications Medication Instructions Recorded Confirmed Last Taken Type Catapres 0.2 mg PO TID 09/02/18 09/02/18 09/01/18 20:00 History 0.2 DULoxetine 60 mg PO DAILY 09/02/18 09/02/18 09/01/18 History Losartan/Hydrochlorothiazide 100 mg PO BID 09/02/18 09/02/18 09/01/18 20:00 H istory Carvedilol [Coreg] 25 mg PO BID #60 tablet 09/07/18 Unknown Rx Ertapenem [INVanz] 1 gm IV QDAY vial 09/07/18 Unknown Rx Flecainide 50 mg PO BID #60 09/07/18 Unknown Rx Flecainide [Tambocor] 50 mg PO BID tablet 09/07/18 Unknown Rx Minoxidil 0.5 mg PO BID #60 09/07/18 Unknown Rx Omeprazole 40 mg PO BID #30 capsule. 09/07/18 Unknown Rx Potassium Chloride 20 meq PO BID #60 09/07/18 Unknown Rx amLODIPine [Norvasc] 5 mg PO QDAY #30 tablet 09/07/18 Unknown Rx cloNIDine [Catapres] 0.2 mg PO TID #60 tablet 09/07/18 Unknown Rx oxyCODONE /ACETAMINOPHEN [Percocet 1 tab PO Q6H PRN #30 tablet 09/07/18 Unknown Rx 5/325 mg] Furosemide [Lasix] 20 mg PO QDAY #15 tablet 10/12/18 Unknown Rx ED Physical Exam - General Limitations: No Limitations - Other Other exam information: GENERAL: Patient in no acute distress HEAD: Normocephalic, atraumatic EYES: PERRLA, EOM intact, no scleral icterus, no conjunctival hemorrhage, visual denis and acuity wnl NOSE: No tenderness, discharge, sinus tenderness MOUTH: No erythema, bleeding, exudate HEART: bilateral peripheral edema. Regular rate and rhythm, no murmur, S1-S2 are auscultated, pulses are symmetric LUNGS: Bibasilar rales. No respiratory distress. Bilateral breath sounds, No tachypnea, No retractions, No wheezing, bhonchi ABDOMEN: Normal bowel sounds, abdomen soft, no tenderness, no rebound, no guarding, no distention, no masses, no CVA tenderness MUSCULOSKELETAL: Normal joint range of motion, no redness, no swelling, no tenderness NEUROLOGIC: GCS 15, Alert and Oriented x3, Cranial nerves intact, normal sensation, normal strength, normal gait, no cerebellar deficit, NIHSS 0 SKIN: Skin is warm and dry, left foot wounds without surrounding erythema tenderness or discharge. 4th adn 5th toe amputation. ED Course Vital Signs 12/02/18 12/02/18 12/02/18 04:55 06:00 06:46 Temperature 97.6 F Pulse Rate 77 67 69 Respiratory 18 23 16 Rate Blood Pressure 214/116 156/73 156/73 Blood Pressure [Right] O2 Sat by Pulse 98 100 100 Oximetry 12/02/18 12/02/18 12/02/18 07:00 07:16 07:30 Temperature Pulse Rate 71 59 L 69 Respiratory 15 22 28 H Rate Blood Pressure 156/73 156/73 156/73 Blood Pressure [Right] O2 Sat by Pulse Oximetry 12/02/18 12/02/18 12/02/18 07:45 08:59 09:02 Temperature Pulse Rate 71 71 Respiratory 13 21 Rate Blood Pressure 156/73 156/73 Blood Pressure 175/98 [Right] O2 Sat by Pulse 97 96 Oximetry 12/02/18 12/02/18 12/02/18 11:31 12:02 12:26 Temperature Pulse Rate 71 71 70 Respiratory 19 Rate Blood Pressure 220/110 206/110 Blood Pressure 220/110 [Right] O2 Sat by Pulse 100 Oximetry 12/02/18 13:23 Temperature 98.6 F Pulse Rate 92 H Respiratory 18 Rate Blood Pressure Blood Pressure 198/82 [Right] O2 Sat by Pulse 100 Oximetry ED Medical Decision Making - Lab Data Result diagrams: 12/02/18 05:35 12/02/18 05:35 Laboratory Results - last 24 hr 12/02/18 12/02/18 12/02/18 05:35 05:35 05:35 WBC 6.3 RBC 4.03 Hgb 10.9 L Hct 32.6 L MCV 81 L MCH 27 L MCHC 33 RDW 15.1 Plt Count 247 Lymph % (Auto) 36.9 H [place] % (Auto) 7.7 H Eos % (Auto) 4.0 Baso % (Auto) 0.7 Lymph # 2.3 [place] # 0.5 Eos # 0.3 Baso # 0.0 Seg Neutrophils % 50.7 Seg Neutrophils # 3.2 PT INR APTT D-Dimer Sodium 138 Potassium 3.5 L Chloride 100.6 Carbon Dioxide 27 Anion Gap 14 BUN 11 Creatinine 1.1 Estimated GFR > 60 BUN/Creatinine Ratio 10 Glucose 136 H Calcium 8.8 Troponin T < 0.010 NT-Pro-B Natriuret Pep 638.1 H 12/02/18 06:40 WBC RBC Hgb Hct MCV MCH MCHC RDW Plt Count Lymph % (Auto) [place] % (Auto) Eos % (Auto) Baso % (Auto) Lymph # [place] # Eos # Baso # Seg Neutrophils % Seg Neutrophils # PT 15.6 H INR 1.27 H APTT 29.4 D-Dimer 603.30 H Sodium Potassium Chloride Carbon Dioxide Anion Gap BUN Creatinine Estimated GFR BUN/Creatinine Ratio Glucose Calcium Troponin T NT-Pro-B Natriuret Pep - EKG Data When compared to previous EKG there are: no significant change - Radiology Data Radiology results: report reviewed - Medical Decision Making Patient comfortable. Reports symptom improvement. Updated with results. This patient experienced a significant delay in disposition due to veterinary assistant technician reporting the patient could not receive a CTA scan because the patient was over the weight limit. At that time a V/Q scan was suggested as alternative to evaluate for PE in patient with dyspnea and elevated D-dimer. Charge nurse [place] reported that she spoke with the director who suggested the patient be discharged with oral treatment PE and follow up with PCP. Dr. West ER director in the ER disagreed with that disposition and suggested speak with Dr. Abreu radiology for clarification weight limit. At 0934 Dr. Abreu radiology reports patient is under the 450-500 lb weight limit and can receive a CT scan. At discharge the patient was discovered to have elevated BP. Patient agrees to oral treatment for BP and evaluation before discharge. Plan discharge with outpatient follow up. Return if any worsening. At 1322 patient comfortable. Patient adamant that he did not take his antihypertensives today and that explains his elevated BP. Reports he takes clonidine at home. After clonidine administration in the ER patient BP trending downward. Patient reports he will take his other antihypertensives when he gets home and that he will continue to monitor his BP. Patient agrees to return to the ER if any worsening. Patient offered and refuses evaluation for admission for uncontrolled HTN and CHF exacerbation. Critical care attestation.: If time is entered above; I have spent that time in minutes in the direct care of this critically ill patient, excluding procedure time. ED Disposition Clinical Impression: Hypertensive urgency CHF exacerbation Qualifiers: Heart failure type: unspecified Qualified Code(s): I50.9 - Heart failure, unspecified Disposition: - TO HOME OR SELFCARE Is pt being admited?: No Condition: Stable Instructions: Hypertensive Crisis (ED), Heart Failure (ED) Referrals: GILL HERMOSILLO MD [Primary Care Provider] - 2-3 Days MARIA DE JESUS SOFIA MD [Staff Physician] - as needed Time of Disposition: 13:25
[2018-12-02 13:41] VITALS: BP 198/82
== END 2018-12-02 13:23 | disposition home or self-care (01) ==
LOC: ED 04:46
DX: I11.0 Hypertensive heart disease with heart failure (principal); I50.9 Heart failure, unspecified; I16.0 Hypertensive urgency; M79.672 Pain in left foot; M79.671 Pain in right foot; E66.01 Morbid (severe) obesity due to excess calories; Z90.49 Acquired absence of other specified parts of digestive tract; Z79.899 Other long term (current) drug therapy; Z98.890 Other specified postprocedural states; Z88.5 Allergy status to narcotic agent
CPT/HCPCS: 36415; 71045; 71275; 80048; 83880; 84484; 85025; 85379; 85610; 85730; 93005; 93010; 96374; 99285; J1940; Q9967